=== PATIENT | female | born 1965 | race African-American/Black ===

== ENCOUNTER 2017-07-18 08:30 | Emergency (ER) | payer MEDICAID ==
[~2017-07-18] VITALS: Ht 170.2 cm; Wt 75.0 kg
[~2017-07-18 08:30] MED LIST: DOCU250C14 PO; HYDR-523 PO; LORA10TA7 PO; METF10002 PO; MOME13HF2 IH; OMEP20TA15 PO; TRAM50TA3 PO
[2017-07-18] MEDS ORDERED: SODIUM CHLORIDE 0.9% 1,000 ML IV ONE (09:38)
[2017-07-18 10:05] LABS: BASOPHILS % 1.1 % (0.0-2.0); EOSINOPHILS % 1.4 % (0.0-5.0); HEMOGLOBIN. 11.8 g/dL (12.0-16.0); LYMPHOCYTES % 29.4 % (20.0-50.0); MEAN CORPUSCULAR HEMOGLOBIN 27.6 pg (28.0-32.0); MEAN CORPUSCULAR VOLUME 84.3 fL (81.0-99.0); MONOCYTES % 7.6 % (2.0-8.0); NEUTROPHILS % 60.5 % (40.0-76.0); PLATELET 260 x1000/uL (130-400); RED BLOOD CELL COUNT 4.27 mill/uL (4.2-5.4); RED CELL DISTRIBUTION WIDTH 14.8 % (11.6-14.6)
[2017-07-18 10:13] LABS: KETONES URINE NEGATIVE (NEGATIVE); LEUKOCYTE ESTERASE URINE NEGATIVE (NEGATIVE); NITRITE URINE NEGATIVE (NEGATIVE); OCCULT BLOOD URINE TRACE (NEGATIVE); PH URINE 5.5 (4.5-8.0); PROTEIN URINE 1+ (NEGATIVE); SPECIFIC GRAVITY URINE 1.007 (1.005-1.030); UROBILINOGEN URINE 0.2 E.U./dL (0.2-1.0)
[2017-07-18 10:16] LABS: D-DIMER 0.57 mg/L FEU (<0.50); INR 1.1; PROTHROMBIN TIME 11.4 sec (9.4-11.6)
[2017-07-18 10:16] LABS: CLARITY URINE CLEAR (CLEAR); COLOR URINE PALE YELLOW (YELLOW)
[2017-07-18 10:21] LABS: CARBON DIOXIDE 24 mEq/L (21-32); CHLORIDE 108 mEq/L (98-107); TROPONIN I < 0.02 ng/mL (0.00-0.04)
[2017-07-18 11:07] LABS: *AMPHETAMINES SCREEN URINE NEGATIVE (NEGATIVE); *BARBITURATES SCREEN URINE NEGATIVE (NEGATIVE); *BENZODIAZEPINES SCREEN URINE NEGATIVE (NEGATIVE); *COCAINE SCREEN URINE PRESUMTIVE POSITIVE (NEGATIVE); CANNABINOID URINE SCREEN NEGATIVE (NEGATIVE); METHADONE URINE SCREEN NEGATIVE (NEGATIVE); OPIATES URINE SCREEN NEGATIVE (NEGATIVE); PHENCYCLIDINE URINE SCREEN PRESUMTIVE POSITIVE (NEGATIVE)
[2017-07-18] MEDS ORDERED: ACETAMINOPHEN 325MG TABLET PO ONE (12:15)
[2017-07-18 16:28] VITALS: BP 158/90
[2017-07-18] MEDS ORDERED: IOHEXOL-350 100 ML BOTTLE ONE (17:13)
== END 2017-07-18 17:52 | disposition home or self-care (01) ==
LOC: ER 08:53
DX: R51 Headache (principal); R04.0 Epistaxis; R07.9 Chest pain, unspecified; R20.0 Anesthesia of skin; M79.7 Fibromyalgia; J45.909 Unspecified asthma, uncomplicated; E11.9 Type 2 diabetes mellitus without complications; M19.90 Unspecified osteoarthritis, unspecified site; F17.200 Nicotine dependence, unspecified, uncomplicated; F12.10 Cannabis abuse, uncomplicated; Z88.5 Allergy status to narcotic agent
CPT/HCPCS: 36415; 70486; 71045; 71275; 80053; 80305; 81001; 82962; 83880; 84484; 85025; 85379; 85610; 87040; 87086; 93005; 96360; 99285; J7030; Q9967; Z7610

== ENCOUNTER 2018-03-17 18:50 | Emergency (ER) | payer MEDICAID ==
[~2018-03-17] VITALS: Ht 167.6 cm; Wt 78.0 kg
[~2018-03-17 18:50] MED LIST changes: -METF10002 PO; +METF10004 PO
[2018-03-17 20:56] LABS: CHLORIDE 109 mEq/L (98-107)
[2018-03-17 21:00] LABS: BASOPHILS % 0.2 % (0.0-2.0); EOSINOPHILS % 0.8 % (0.0-5.0); HEMATOCRIT. 32.5 % (36.0-48.0); HEMOGLOBIN. 10.2 g/dL (12.0-16.0); MEAN CORPUSCULAR HEMOGLOBIN 27.7 pg (28.0-32.0); MEAN CORPUSCULAR VOLUME 88.6 fL (81.0-99.0); MEAN PLATELET VOLUME 11.2 fl (7.4-10.4); MONOCYTES % 4.6 % (2.0-8.0); NEUTROPHILS % 86.4 % (40.0-76.0); PLATELET 225 x1000/uL (130-400); RED BLOOD CELL COUNT 3.67 mill/uL (4.2-5.4)
[2018-03-17] MEDS ORDERED: ALBUTEROL (0.083%) 2.5MG/3ML NEB HHN STA (21:13)
[2018-03-17] MEDS ORDERED: IPRATROPIUM BROMIDE (0.02%) 0.5MG/2.5ML NEB HHN STA (21:13)
[2018-03-17] MEDS ORDERED: KETOROLAC 15MG/ML VIAL IV ONE (21:45)
[2018-03-17] MEDS ORDERED: SODIUM CHLORIDE 0.9% 1,000 ML IV ONE (21:45)
[2018-03-17 22:17] VITALS: BP 172/90
== END 2018-03-17 22:41 | disposition home or self-care (01) ==
LOC: ER 18:50
DX: J06.9 Acute upper respiratory infection, unspecified (principal); J44.1 Chronic obstructive pulmonary disease with (acute) exacerbation; N17.9 Acute kidney failure, unspecified; M54.5 Low back pain; E86.0 Dehydration; R07.89 Other chest pain; E11.65 Type 2 diabetes mellitus with hyperglycemia; E88.09 Other disorders of plasma-protein metabolism, not elsewhere classified; M19.90 Unspecified osteoarthritis, unspecified site; D64.9 Anemia, unspecified; J45.909 Unspecified asthma, uncomplicated; F12.10 Cannabis abuse, uncomplicated; F17.200 Nicotine dependence, unspecified, uncomplicated; M79.7 Fibromyalgia; Z88.5 Allergy status to narcotic agent; Z79.84 Long term (current) use of oral hypoglycemic drugs
CPT/HCPCS: 36415; 71045; 80053; 83880; 84484; 85025; 94640; 96361; 96374; 99285; J1885; J7030; J7611

== ENCOUNTER 2018-11-01 20:40 | Inpatient (IN) | payer MEDICAID ==
[~2018-11-01] VITALS: Ht 167.6 cm; Wt 83.0 kg
[~2018-11-01 20:40] MED LIST changes: +ALBU4TAB6 PO; +ARAV10 PO; +GABA-529 PO; -LORA10TA7 PO; +LORA5SOL PO; +LORA5SOL62 PO; -METF10004 PO
[2018-11-01] MEDS ORDERED: NITROGLYCERIN 0.4MG TABLET SL SL PRN (21:45)
[2018-11-01] MEDS ORDERED: ASPIRIN 81MG TABLET PO ONE (21:45)
[2018-11-01 22:17] LABS: BASOPHILS % 1.2 % (0.0-2.0); EOSINOPHILS % 0.9 % (0.0-5.0); HEMATOCRIT. 36.4 % (36.0-48.0); HEMOGLOBIN. 11.5 g/dL (12.0-16.0); LYMPHOCYTES % 28.1 % (20.0-50.0); MEAN CORPUSCULAR HEMOGLOBIN 26.5 pg (28.0-32.0); MEAN CORPUSCULAR VOLUME 84.2 fL (81.0-99.0); MEAN PLATELET VOLUME 11.8 fl (7.4-10.4); MONOCYTES % 9.8 % (2.0-8.0); PLATELET 205 x1000/uL (130-400); RED BLOOD CELL COUNT 4.33 mill/uL (4.2-5.4); RED CELL DISTRIBUTION WIDTH 16.2 % (11.6-14.6)
[2018-11-01 22:21] LABS: CHLORIDE 104 mEq/L (98-107)
[2018-11-01 22:26] LABS: D-DIMER 0.64 mg/L FEU (<0.50); INR 1.1; PARTIAL THROMBOPLASTIN TIME 30.6 sec (23.4-31.0); PROTHROMBIN TIME 11.1 sec (9.6-11.0)
[2018-11-01] MEDS ORDERED: INSULIN REGULAR (HUMULIN R) UD 100 UNITS/ML SYR SUBCUT ONE (23:45)
[2018-11-02] MEDS ORDERED: DOCUSATE SODIUM 100MG CAPSULE PO PRN (00:15)
[2018-11-02] MEDS ORDERED: ONDANSETRON HCL 4MG/2ML INJ IV PRN (00:15)
[2018-11-02] MEDS ORDERED: ACETAMINOPHEN 325MG TABLET PO PRN (00:15)
[2018-11-02] MEDS ORDERED: IPRATROPIUM/ALBUTEROL 0.5-3(2.5)MG/3ML NEB INH PRN (00:15)
[2018-11-02] MEDS ORDERED: MAGNESIUM/ALUMINUM HYDROXIDE/SIMETHICONE 30ML UDC PO PRN (00:15)
[2018-11-02] MEDS ORDERED: IOHEXOL-350 100 ML BOTTLE ONE (02:10)
[2018-11-02] MEDS ORDERED: INSULIN REGULAR (HUMULIN R) 300UNITS/3ML SUBCUT NR (02:30)
[2018-11-02 02:59] LABS: *AMPHETAMINES SCREEN URINE NEGATIVE (NEGATIVE); *BARBITURATES SCREEN URINE NEGATIVE (NEGATIVE)
[2018-11-02 03:00] LABS: *BENZODIAZEPINES SCREEN URINE NEGATIVE (NEGATIVE); *COCAINE SCREEN URINE PRESUMTIVE POSITIVE (NEGATIVE); CANNABINOID URINE SCREEN NEGATIVE (NEGATIVE); METHADONE URINE SCREEN NEGATIVE (NEGATIVE); OPIATES URINE SCREEN NEGATIVE (NEGATIVE); PHENCYCLIDINE URINE SCREEN PRESUMTIVE POSITIVE (NEGATIVE)
[2018-11-02] MEDS: HYDROCODONE/ACETAMINOPHEN 5/325MG TABLET PO PRN ×3 (03:34→21:34)
[2018-11-02] MEDS: CLONIDINE 0.1MG TABLET PO PRN ×2 (05:09→23:52)
[2018-11-02 06:29] LABS: CREATINE KINASE 103 IU/L (26-192)
[2018-11-02 06:30] LABS: CREATINE KINASE MB FRACTION 1.4 ng/mL (0.5-3.6)
[2018-11-02] MEDS ORDERED: DEXTROSE 50% WATER 50ML SYRINGE IV PRN (09:30)
[2018-11-02 10:00] VITALS: BP 172/100
[2018-11-02] MEDS: ASPIRIN 81MG EC TABLET PO SCH (10:26)
[2018-11-02] MEDS: ENOXAPARIN 40MG/0.4ML SYR SUBCUT SCH (10:28)
[2018-11-02] MEDS: INSULIN LISPRO 100 UNITS/ML SUBCUT SCH ×3 (10:30→21:33)
[2018-11-02] MEDS: BLOOD SUGAR DIAGNOSTIC STRIP TEST SCH ×3 (10:30→21:32)
[2018-11-02] MEDS: AMLODIPINE 5MG TABLET PO SCH ×2 (10:39→21:33)
[2018-11-02] MEDS: GUAIFENESIN 200MG/10ML SUGAR FREE UDC PO PRN ×2 (10:40→21:37)
[2018-11-02 16:00] VITALS: BP 147/82
[2018-11-02 19:00] LABS: CREATINE KINASE 92 IU/L (26-192)
[2018-11-02 19:01] LABS: CREATINE KINASE MB FRACTION 1.2 ng/mL (0.5-3.6)
[2018-11-02 20:00] VITALS: BP 163/96
[2018-11-02 20:12] LABS: HEPATITIS B SURFACE ANTIGEN NEGATIVE
[2018-11-02 20:42] LABS: HEPATITIS A AB IGM NEGATIVE (NEGATIVE)
[2018-11-03] VITALS: BP 179/107
[2018-11-03 04:00] VITALS: BP 170/100
[2018-11-03] MEDS: BLOOD SUGAR DIAGNOSTIC STRIP TEST SCH ×3 (06:50→21:37)
[2018-11-03 07:01] LABS: BASOPHILS % 0.9 % (0.0-2.0); EOSINOPHILS % 3.2 % (0.0-5.0); HEMATOCRIT. 34.8 % (36.0-48.0); HEMOGLOBIN. 11.3 g/dL (12.0-16.0); LYMPHOCYTES % 39.9 % (20.0-50.0); MEAN CORPUSCULAR HEMOGLOBIN 26.9 pg (28.0-32.0); MEAN CORPUSCULAR VOLUME 82.6 fL (81.0-99.0); MEAN PLATELET VOLUME 10.5 fl (7.4-10.4); MONOCYTES % 12.6 % (2.0-8.0); NEUTROPHILS % 43.4 % (40.0-76.0); PLATELET 148 x1000/uL (130-400); RED BLOOD CELL COUNT 4.21 mill/uL (4.2-5.4)
[2018-11-03] MEDS: INSULIN LISPRO 100 UNITS/ML SUBCUT SCH ×4 (07:02→21:46)
[2018-11-03 07:52] LABS: CHLORIDE 107 mEq/L (98-107)
[2018-11-03 08:00] VITALS: BP 145/86
[2018-11-03 08:14] LABS: HDL CHOLESTEROL 52 mg/dL (40-59); LDL CHOLESTEROL 66 mg/dL (5-100)
[2018-11-03] MEDS ORDERED: THROAT LOZENGES-BENZOCAINE/MENTH/CETYLPYRD CL LOZENGES MM SCH (09:45)
[2018-11-03] MEDS ORDERED: GUAIFENESIN 200MG/10ML SUGAR FREE UDC PO SCH (09:45)
[2018-11-03] MEDS ORDERED: THROAT LOZENGES-BENZOCAINE/MENTH/CETYLPYRD CL LOZENGES MM PRN (09:45)
[2018-11-03] MEDS ORDERED: INSULIN GLARGINE UD 100 UNITS/ML SYR SUBCUT SCH ×2 (10:00→22:00)
[2018-11-03] MEDS: CLONIDINE 0.1MG TABLET PO SCH ×3 (10:04→21:43)
[2018-11-03] MEDS: HYDRALAZINE HCL 25MG TABLET PO SCH ×3 (10:04→21:44)
[2018-11-03] MEDS: ASPIRIN 81MG EC TABLET PO SCH (10:04)
[2018-11-03] MEDS: HYDROCODONE/ACETAMINOPHEN 5/325MG TABLET PO PRN ×2 (10:05→21:43)
[2018-11-03] MEDS: NIFEDIPINE XL 60MG TAB PO SCH ×2 (10:05→21:42)
[2018-11-03] MEDS: ENOXAPARIN 40MG/0.4ML SYR SUBCUT SCH (10:06)
[2018-11-03 12:00] VITALS: BP_SYST 128; BP_SYST 143; BP_DIAS 65; BP_DIAS 76
[2018-11-03] MEDS ORDERED: DEXTROSE 50% WATER 50ML SYRINGE IV PRN (12:45)
[2018-11-03] MEDS ORDERED: GABA-531 MT (14:18)
[2018-11-03] MEDS ORDERED: HYDR200T35 MT (14:21)
[2018-11-03] MEDS ORDERED: FURO20TA4 MT (14:24)
[2018-11-03] MEDS ORDERED: MONT10TA24 MT (14:24)
[2018-11-03] MEDS ORDERED: OMEP20CA10 MT (14:25)
[2018-11-03] MEDS ORDERED: CETI10TA10 MT (14:26)
[2018-11-03] MEDS ORDERED: LEFL20TA17 MT (14:27)
[2018-11-03] MEDS ORDERED: DILT180C3 MT (14:28)
[2018-11-03] MEDS ORDERED: FLUT15.88 BOTHNSTRLS (14:28)
[2018-11-03] MEDS ORDERED: DULO30CA51 MT (14:29)
[2018-11-03] MEDS ORDERED: CALC-3 MT (14:30)
[2018-11-03] MEDS ORDERED: FOLI-43 MT (14:31)
[2018-11-03] MEDS ORDERED: INSULIN GLARGINE UD 100 UNITS/ML SYR SUBCUT NR (16:00)
[2018-11-03 17:12] LABS: BG BASE EXCESS -2.3 mmol/L (-2.0-2.0); BG CARBOXYHEMOGLOBIN 0.2 % (0.5-1.5); BG DEOXYHEMOGLOBIN 3.2 % (0.0-5.0); BG FRACTION INSPIRED OXYGEN 21; BG HCO3 ACT 22.4 mmol/L (22.0-26.0); BG METHEMOGLOBIN 0.3 % (0.0-1.5); BG OXYGEN SATURATION 96.8 % (92.0-98.5); BG OXYHEMOGLOBIN 96.3 % (94.0-97.0); BG PCO2 37.9 mmHg (35.0-45.0); BG PH 7.389 (7.350-7.450); BG PO2 98.2 mmHg (75.0-100.0); BG SAMPLE SITE LEFT RADIAL; BG TOTAL HEMOGLOBIN 11.3 g/dL (12.0-18.0); BG VENT MODE ROOM AIR
[2018-11-03] MEDS ORDERED: INSULIN LISPRO 100 UNITS/ML SUBCUT SCH (17:15)
[2018-11-03 20:00] VITALS: BP 133/75
[2018-11-03] MEDS: GUAIFENESIN 200MG/10ML SUGAR FREE UDC PO PRN (21:41)
[2018-11-04] VITALS (7 sets, daily range): BP systolic 122–140; BP diastolic 70–76
[2018-11-04 05:17] LABS: HIV SCREEN 4G Non Reactive (Non Reactive)
[2018-11-04] MEDS: HYDRALAZINE HCL 25MG TABLET PO SCH ×2 (06:39→15:18)
[2018-11-04] MEDS: CLONIDINE 0.1MG TABLET PO SCH ×2 (06:39→15:18)
[2018-11-04] MEDS: BLOOD SUGAR DIAGNOSTIC STRIP TEST SCH ×4 (06:39→21:00)
[2018-11-04 06:42] LABS: BASOPHILS % 0.9 % (0.0-2.0); EOSINOPHILS % 2.7 % (0.0-5.0); HEMATOCRIT. 34.8 % (36.0-48.0); HEMOGLOBIN. 11.1 g/dL (12.0-16.0); LYMPHOCYTES % 35.4 % (20.0-50.0); MEAN CORPUSCULAR HEMOGLOBIN 26.7 pg (28.0-32.0); MEAN CORPUSCULAR VOLUME 83.2 fL (81.0-99.0); MONOCYTES % 10.4 % (2.0-8.0); NEUTROPHILS % 50.6 % (40.0-76.0); PLATELET 157 x1000/uL (130-400); RED BLOOD CELL COUNT 4.18 mill/uL (4.2-5.4)
[2018-11-04] MEDS: INSULIN LISPRO 100 UNITS/ML SUBCUT SCH ×3 (06:42→17:59)
[2018-11-04 07:12] LABS: CHLORIDE 103 mEq/L (98-107)
[2018-11-04 07:30] LABS: PHOSPHORUS 3.2 mg/dL (2.5-4.9)
[2018-11-04] MEDS: ASPIRIN 81MG EC TABLET PO SCH (09:28)
[2018-11-04] MEDS: NIFEDIPINE XL 60MG TAB PO SCH (09:28)
[2018-11-04] MEDS: ENOXAPARIN 40MG/0.4ML SYR SUBCUT SCH (09:28)
[2018-11-04] MEDS: INSULIN GLARGINE UD 100 UNITS/ML SYR SUBCUT SCH (10:39)
[2018-11-04] MEDS: GUAIFENESIN 200MG/10ML SUGAR FREE UDC PO PRN (11:01)
[2018-11-04] MEDS: HYDROCODONE/ACETAMINOPHEN 5/325MG TABLET PO PRN (11:02)
[2018-11-05] VITALS: BP 127/87
[2018-11-05] MEDS: GUAIFENESIN 200MG/10ML SUGAR FREE UDC PO PRN (00:02)
[2018-11-05] MEDS: HYDROCODONE/ACETAMINOPHEN 5/325MG TABLET PO PRN (00:02)
[2018-11-05] MEDS: INSULIN GLARGINE UD 100 UNITS/ML SYR SUBCUT SCH ×2 (00:02→09:03)
[2018-11-05] MEDS: INSULIN LISPRO 100 UNITS/ML SUBCUT SCH ×3 (00:03→13:11)
[2018-11-05] MEDS: HYDRALAZINE HCL 25MG TABLET PO SCH ×3 (00:04→13:11)
[2018-11-05] MEDS: NIFEDIPINE XL 60MG TAB PO SCH ×2 (00:07→08:27)
[2018-11-05] MEDS: CLONIDINE 0.1MG TABLET PO SCH ×3 (00:07→13:11)
[2018-11-05 04:00] VITALS: BP 156/91
[2018-11-05] MEDS: BLOOD SUGAR DIAGNOSTIC STRIP TEST SCH ×2 (06:54→12:02)
[2018-11-05 07:23] LABS: BASOPHILS % 1.1 % (0.0-2.0); EOSINOPHILS % 1.9 % (0.0-5.0); HEMATOCRIT. 38.6 % (36.0-48.0); HEMOGLOBIN. 12.4 g/dL (12.0-16.0); LYMPHOCYTES % 41.3 % (20.0-50.0); MEAN CORPUSCULAR HEMOGLOBIN 26.3 pg (28.0-32.0); MEAN PLATELET VOLUME 11.2 fl (7.4-10.4); MONOCYTES % 8.4 % (2.0-8.0); NEUTROPHILS % 47.3 % (40.0-76.0); PLATELET 213 x1000/uL (130-400); RED BLOOD CELL COUNT 4.71 mill/uL (4.2-5.4); RED CELL DISTRIBUTION WIDTH 15.6 % (11.6-14.6)
[2018-11-05 07:56] LABS: CHLORIDE 105 mEq/L (98-107)
[2018-11-05 08:00] VITALS: BP 158/68
[2018-11-05] MEDS: ASPIRIN 81MG EC TABLET PO SCH (08:27)
[2018-11-05] MEDS: ENOXAPARIN 40MG/0.4ML SYR SUBCUT SCH (08:27)
[2018-11-05 12:00] VITALS: BP 123/78
[2018-11-05] MEDS ORDERED: GEMF600T MT (13:09)
[2018-11-05] MEDS ORDERED: ASPI-1158 PO (13:09)
[2018-11-05] MEDS ORDERED: CLON0.1T14 PO (13:09)
[2018-11-05] MEDS ORDERED: NIFE60TA64 PO (13:09)
[2018-11-05] MEDS ORDERED: HYDR-4134 PO (13:09)
[2018-11-05] MEDS ORDERED: LANTUSUD SUBCUT (13:09)
[2018-11-05] MEDS ORDERED: DOCU-138 MT (13:17)
[2018-11-05] MEDS ORDERED: CODE10LI MT (13:17)
[2018-11-05 13:20] VITALS: BP 123/78
== END 2018-11-05 14:15 | disposition home or self-care (01) | DRG 469 ==
LOC: ER 20:40 → 5WST 11-02 02:34 → ENRESERV 11-02 07:22
PROVIDERS: ADMIT Internal Medicine; ATTEND Internal Medicine
DX: N17.9 Acute kidney failure, unspecified (principal); E87.2 Acidosis; I11.9 Hypertensive heart disease without heart failure; E11.65 Type 2 diabetes mellitus with hyperglycemia; E44.1 Mild protein-calorie malnutrition; R13.10 Dysphagia, unspecified; J44.9 Chronic obstructive pulmonary disease, unspecified; J45.909 Unspecified asthma, uncomplicated; M19.90 Unspecified osteoarthritis, unspecified site; J02.9 Acute pharyngitis, unspecified; R07.89 Other chest pain; D64.9 Anemia, unspecified; E78.1 Pure hyperglyceridemia; M79.7 Fibromyalgia; F16.129 Hallucinogen abuse with intoxication, unspecified; F17.210 Nicotine dependence, cigarettes, uncomplicated; M06.9 Rheumatoid arthritis, unspecified; Z79.4 Long term (current) use of insulin; Z83.3 Family history of diabetes mellitus; Z82.49 Family history of ischemic heart disease and other diseases of the circulatory system; Z68.29 Body mass index [BMI] 29.0-29.9, adult; Z88.5 Allergy status to narcotic agent; Z79.51 Long term (current) use of inhaled steroids; Z79.899 Other long term (current) drug therapy; Z79.1 Long term (current) use of non-steroidal anti-inflammatories (NSAID); Z71.51 Drug abuse counseling and surveillance of drug abuser; Z71.6 Tobacco abuse counseling; R74.0 Nonspecific elevation of levels of transaminase and lactic acid dehydrogenase [LDH]
CPT/HCPCS: 36415; 36600; 71045; 71275; 80048; 80061; 80305; 82375; 82550; 82553; 82805; 82962; 83036; 83735; 83880; 84100; 84443; 84484; 85379; 86705; 86709; 86803; 87070; 87340; 87389; 87430; 93005; 93306; 93970; 96372; 99285; J1650; J1815; Q9967

== ENCOUNTER 2019-01-11 20:07 | Inpatient (IN) | payer MEDICAID ==
[~2019-01-11] VITALS: Ht 167.6 cm; Wt 90.3 kg
[~2019-01-11 20:07] MED LIST changes: +ASPI-1158 PO; +CALC-3 MT; +CETI10TA10 MT; +CLON0.1T14 PO; +CODE10LI MT; +DOCU-138 MT; +DULO30CA51 MT; +FLUT15.88 BOTHNSTRLS; +FOLI-43 MT; +GEMF600T MT; +HYDR-4134 PO; +HYDR200T35 MT; +LANTUSUD SUBCUT; -LORA5SOL PO; -LORA5SOL62 PO; +MONT10TA24 MT; +NIFE60TA64 PO; +OMEP20CA5 MT; -OMEP20TA15 PO
[2019-01-11] MEDS ORDERED: ONDANSETRON HCL 4MG/2ML INJ IV STA (21:20)
[2019-01-11] MEDS ORDERED: MORPHINE SULFATE 4 MG/ML CPJ (NOT FOR IM USE) IV STA (21:20)
[2019-01-11] MEDS ORDERED: METHYLPREDNISOLONE SOD SUCC 125 MG/2 ML VIAL IV STA (21:20)
[2019-01-11] MEDS ORDERED: KETOROLAC 30MG/ML VIAL IV STA (21:20)
[2019-01-11] MEDS ORDERED: DIPHENHYDRAMINE 50MG/ML VIAL IV ONE (21:30)
[2019-01-11] MEDS ORDERED: IPRATROPIUM/ALBUTEROL 0.5-3(2.5)MG/3ML NEB HHN ONE (21:30)
[2019-01-11] MEDS ORDERED: VANCOMYCIN 1 G PREMIX 200 ML IV ONE (21:30)
[2019-01-11] MEDS ORDERED: PIPERACILLIN/TAZ 3.375G PREMIX 50 ML IV ONE (21:30)
[2019-01-11] MEDS ORDERED: SODIUM CHLORIDE 0.9% 1000ML BAG (SEPSIS BOLUS) IV ONE (21:30)
[2019-01-11 21:45] LABS: BASOPHILS % 0.4 % (0.0-2.0); CLARITY URINE CLEAR (CLEAR); COLOR URINE YELLOW (YELLOW); EOSINOPHILS % 0.4 % (0.0-5.0); HEMATOCRIT. 33.3 % (36.0-48.0); HEMOGLOBIN. 10.3 g/dL (12.0-16.0); KETONES URINE NEGATIVE (NEGATIVE); LEUKOCYTE ESTERASE URINE NEGATIVE (NEGATIVE); LYMPHOCYTES % 11.6 % (20.0-50.0); MEAN CORPUSCULAR HEMOGLOBIN 27.4 pg (28.0-32.0); MEAN CORPUSCULAR VOLUME 88.5 fL (81.0-99.0); MEAN PLATELET VOLUME 11.4 fl (7.4-10.4); MONOCYTES % 9.4 % (2.0-8.0); NEUTROPHILS % 78.2 % (40.0-76.0); NITRITE URINE NEGATIVE (NEGATIVE); OCCULT BLOOD URINE NEGATIVE (NEGATIVE); PH URINE 5.5 (4.5-8.0); PLATELET 206 x1000/uL (130-400); PROTEIN URINE 1+ (NEGATIVE); RED BLOOD CELL COUNT 3.76 mill/uL (4.2-5.4); RED CELL DISTRIBUTION WIDTH 15.1 % (11.6-14.6); SPECIFIC GRAVITY URINE 1.028 (1.005-1.030); UROBILINOGEN URINE 0.2 E.U./dL (0.2-1.0)
[2019-01-11 21:46] LABS: CHLORIDE 95 mEq/L (98-107)
[2019-01-11 21:50] LABS: ETHANOL BLOOD < 10 mg/dL
[2019-01-11 21:55] LABS: CREATINE KINASE 126 IU/L (26-192)
[2019-01-11 21:57] LABS: CREATINE KINASE MB FRACTION < 1.0 ng/mL (0.5-3.6)
[2019-01-11 22:29] LABS: *AMPHETAMINES SCREEN URINE NEGATIVE (NEGATIVE); *BARBITURATES SCREEN URINE NEGATIVE (NEGATIVE); *BENZODIAZEPINES SCREEN URINE NEGATIVE (NEGATIVE); *COCAINE SCREEN URINE PRESUMTIVE POSITIVE (NEGATIVE)
[2019-01-11 22:30] LABS: CANNABINOID URINE SCREEN NEGATIVE (NEGATIVE); METHADONE URINE SCREEN NEGATIVE (NEGATIVE); OPIATES URINE SCREEN PRESUMTIVE POSITIVE (NEGATIVE); PHENCYCLIDINE URINE SCREEN PRESUMTIVE POSITIVE (NEGATIVE)
[2019-01-11] MEDS ORDERED: INSULIN REGULAR (HUMULIN R) 300UNITS/3ML IV ONE (22:30)
[2019-01-11] MEDS ORDERED: INSULIN REGULAR (HUMULIN R) 300UNITS/3ML SUBCUT ONE (22:30)
[2019-01-12] VITALS (9 sets, daily range): BP systolic 96–171; BP diastolic 46–91
[2019-01-12] MEDS ORDERED: DEXTROSE 50% WATER 50ML SYRINGE IV PRN (07:45)
[2019-01-12] MEDS ORDERED: ONDANSETRON HCL 4MG/2ML INJ IV PRN (07:45)
[2019-01-12] MEDS: BLOOD SUGAR DIAGNOSTIC STRIP TEST SCH ×4 (08:52→21:20)
[2019-01-12] MEDS: ENOXAPARIN 40MG/0.4ML SYR SUBCUT SCH (09:10)
[2019-01-12] MEDS: AZITHROMYCIN 500 MG TABLET PO SCH (09:11)
[2019-01-12] MEDS: LINAGLIPTIN 5MG TABLET PO SCH (09:11)
[2019-01-12] MEDS: INSULIN LISPRO 100 UNITS/ML SUBCUT SCH ×7 (09:12→21:30)
[2019-01-12] MEDS: ACETAMINOPHEN 325MG TABLET PO PRN (09:20)
[2019-01-12] MEDS ORDERED: INSULIN GLARGINE UD 100 UNITS/ML SYR SUBCUT SCH ×2 (10:00→22:00)
[2019-01-12] MEDS: SODIUM CHLORIDE 0.9% 1,000 ML IV SCH (11:00)
[2019-01-12] MEDS: CEFTRIAXONE 1 G PREMIX 50 ML IV SCH (12:25)
[2019-01-12] MEDS: INSULIN GLARGINE UD 100 UNITS/ML SYR SUBCUT SCH ×2 (13:38→21:29)
[2019-01-12] MEDS: IPRATROPIUM/ALBUTEROL 0.5-3(2.5)MG/3ML NEB HHN PRN ×2 (13:40→20:34)
[2019-01-12] MEDS: BUDESONIDE 0.5MG/2ML NEB HHN SCH ×2 (13:41→20:34)
[2019-01-12] MEDS: HYDROCODONE/ACETAMINOPHEN 5/325MG TABLET PO PRN ×3 (14:02→23:38)
[2019-01-12] MEDS ORDERED: GLIPIZIDE 5MG TABLET PO SCH (18:30)
[2019-01-12] MEDS: CLONIDINE 0.1MG TABLET PO SCH (21:20)
[2019-01-12] MEDS: NIFEDIPINE XL 60MG TAB PO SCH (21:20)
[2019-01-12] MEDS: HYDRALAZINE HCL 25MG TABLET PO SCH (21:20)
[2019-01-12] MEDS ORDERED: CLONIDINE 0.1MG TABLET PO PRN (23:30)
[2019-01-13] MEDS: SODIUM CHLORIDE 0.9% 1,000 ML IV SCH (00:20)
[2019-01-13] MEDS: HYDROCODONE/ACETAMINOPHEN 5/325MG TABLET PO PRN ×3 (04:27→14:17)
[2019-01-13] MEDS: HYDRALAZINE HCL 25MG TABLET PO SCH ×3 (05:15→21:18)
[2019-01-13] MEDS: CLONIDINE 0.1MG TABLET PO SCH ×3 (05:16→21:18)
[2019-01-13 07:07] LABS: BASOPHILS % 0.7 % (0.0-2.0); EOSINOPHILS % 0.3 % (0.0-5.0); HEMOGLOBIN. 9.6 g/dL (12.0-16.0); MEAN CORPUSCULAR HEMOGLOBIN 27.6 pg (28.0-32.0); MEAN CORPUSCULAR VOLUME 86.4 fL (81.0-99.0); MEAN PLATELET VOLUME 10.7 fl (7.4-10.4); MONOCYTES % 8.5 % (2.0-8.0); NEUTROPHILS % 72.5 % (40.0-76.0); PLATELET 169 x1000/uL (130-400); RED BLOOD CELL COUNT 3.47 mill/uL (4.2-5.4)
[2019-01-13 07:28] LABS: CHLORIDE 103 mEq/L (98-107)
[2019-01-13] MEDS: BLOOD SUGAR DIAGNOSTIC STRIP TEST SCH ×4 (07:30→20:57)
[2019-01-13] MEDS: BUDESONIDE 0.5MG/2ML NEB HHN SCH ×2 (07:50→21:19)
[2019-01-13] MEDS: IPRATROPIUM/ALBUTEROL 0.5-3(2.5)MG/3ML NEB HHN PRN (07:50)
[2019-01-13 08:05] VITALS: BP 163/99
[2019-01-13] MEDS: AZITHROMYCIN 500 MG TABLET PO SCH (08:48)
[2019-01-13] MEDS: METFORMIN HCL 500MG TABLET PO SCH ×2 (08:49→18:00)
[2019-01-13] MEDS: LINAGLIPTIN 5MG TABLET PO SCH (08:50)
[2019-01-13] MEDS: NIFEDIPINE XL 60MG TAB PO SCH ×2 (08:51→21:20)
[2019-01-13] MEDS: GLIPIZIDE 5MG TABLET PO SCH ×2 (08:51→17:30)
[2019-01-13] MEDS: ENOXAPARIN 40MG/0.4ML SYR SUBCUT SCH (08:52)
[2019-01-13] MEDS: INSULIN LISPRO 100 UNITS/ML SUBCUT SCH ×7 (08:54→20:57)
[2019-01-13] MEDS: CEFTRIAXONE 1 G PREMIX 50 ML IV SCH (09:00)
[2019-01-13 10:00] VITALS: BP 147/78
[2019-01-13] MEDS ORDERED: KETOROLAC 30MG/ML VIAL IV PRN (10:30)
[2019-01-13] MEDS: INSULIN GLARGINE UD 100 UNITS/ML SYR SUBCUT SCH ×2 (11:46→22:00)
[2019-01-13 12:00] VITALS: BP 155/85
[2019-01-13 14:00] VITALS: BP 150/96
[2019-01-13] MEDS: KETOROLAC 15MG/ML VIAL IV PRN (15:56)
[2019-01-13 16:00] VITALS: BP 140/66
[2019-01-13 18:00] VITALS: BP 129/67
[2019-01-14] VITALS (12 sets, daily range): BP systolic 123–171; BP diastolic 53–104
[2019-01-14] MEDS: KETOROLAC 15MG/ML VIAL IV PRN ×3 (02:32→18:40)
[2019-01-14] MEDS: HYDROCODONE/ACETAMINOPHEN 5/325MG TABLET PO PRN ×2 (03:53→22:34)
[2019-01-14] MEDS: HYDRALAZINE HCL 25MG TABLET PO SCH (05:49)
[2019-01-14] MEDS: CLONIDINE 0.1MG TABLET PO SCH ×3 (05:50→20:59)
[2019-01-14 07:00] LABS: BASOPHILS % 0.4 % (0.0-2.0); EOSINOPHILS % 1.5 % (0.0-5.0); HEMATOCRIT. 33.9 % (36.0-48.0); HEMOGLOBIN. 10.8 g/dL (12.0-16.0); LYMPHOCYTES % 21.9 % (20.0-50.0); MEAN CORPUSCULAR HEMOGLOBIN 27.7 pg (28.0-32.0); MEAN CORPUSCULAR VOLUME 86.5 fL (81.0-99.0); MONOCYTES % 7.6 % (2.0-8.0); NEUTROPHILS % 68.6 % (40.0-76.0); PLATELET 207 x1000/uL (130-400); RED BLOOD CELL COUNT 3.92 mill/uL (4.2-5.4); RED CELL DISTRIBUTION WIDTH 15.1 % (11.6-14.6)
[2019-01-14 07:18] LABS: CHLORIDE 102 mEq/L (98-107)
[2019-01-14] MEDS ORDERED: GLIPIZIDE 5MG TABLET PO SCH (07:30)
[2019-01-14] MEDS: INSULIN LISPRO 100 UNITS/ML SUBCUT SCH ×5 (08:00→20:57)
[2019-01-14] MEDS: BLOOD SUGAR DIAGNOSTIC STRIP TEST SCH ×4 (08:14→21:03)
[2019-01-14] MEDS ORDERED: LIDOCAINE HCL 1% 20ML VIAL (Pyxis) INJ ONE (08:16)
[2019-01-14] MEDS ORDERED: SODIUM BICARBONATE 4% (2.4MEQ) 5ML VIAL IV ONE (08:16)
[2019-01-14] MEDS: NIFEDIPINE XL 60MG TAB PO SCH ×2 (08:17→21:02)
[2019-01-14] MEDS: AZITHROMYCIN 500 MG TABLET PO SCH (08:17)
[2019-01-14] MEDS: METFORMIN HCL 500MG TABLET PO SCH ×2 (08:18→18:00)
[2019-01-14] MEDS: LINAGLIPTIN 5MG TABLET PO SCH (08:18)
[2019-01-14] MEDS: GLIPIZIDE 5MG TABLET PO SCH ×2 (08:31→17:30)
[2019-01-14] MEDS: ENOXAPARIN 40MG/0.4ML SYR SUBCUT SCH (09:00)
[2019-01-14] MEDS: INSULIN GLARGINE UD 100 UNITS/ML SYR SUBCUT SCH ×2 (10:10→20:58)
[2019-01-14] MEDS: BUDESONIDE 0.5MG/2ML NEB HHN SCH (11:50)
[2019-01-14] MEDS: CEFTRIAXONE 1 G PREMIX 50 ML IV SCH (12:59)
[2019-01-14] MEDS: HYDRALAZINE HCL 100MG TABLET PO SCH ×2 (13:02→20:59)
[2019-01-14] MEDS: METOPROLOL TARTRATE 50MG TABLET PO SCH (20:59)
[2019-01-14] MEDS: ZOLPIDEM TARTRATE 5MG TABLET PO PRN (22:33)
[2019-01-15] VITALS: BP 141/78
[2019-01-15 04:00] VITALS: BP 144/73
[2019-01-15] MEDS: HYDROCODONE/ACETAMINOPHEN 5/325MG TABLET PO PRN (04:35)
[2019-01-15] MEDS: CLONIDINE 0.1MG TABLET PO SCH ×3 (05:26→22:10)
[2019-01-15] MEDS: HYDRALAZINE HCL 100MG TABLET PO SCH ×3 (05:26→22:09)
[2019-01-15] MEDS: INSULIN LISPRO 100 UNITS/ML SUBCUT SCH ×7 (07:30→22:12)
[2019-01-15] MEDS: GLIPIZIDE 5MG TABLET PO SCH ×2 (07:30→17:03)
[2019-01-15] MEDS: BLOOD SUGAR DIAGNOSTIC STRIP TEST SCH ×4 (07:30→21:00)
[2019-01-15 08:00] VITALS: BP 135/73
[2019-01-15 08:31] LABS: BASOPHILS % 0.6 % (0.0-2.0); EOSINOPHILS % 1.1 % (0.0-5.0); HEMATOCRIT. 32.2 % (36.0-48.0); HEMOGLOBIN. 10.4 g/dL (12.0-16.0); LYMPHOCYTES % 17.5 % (20.0-50.0); MEAN CORPUSCULAR HEMOGLOBIN 27.5 pg (28.0-32.0); MEAN CORPUSCULAR VOLUME 84.9 fL (81.0-99.0); MEAN PLATELET VOLUME 10.7 fl (7.4-10.4); MONOCYTES % 9.2 % (2.0-8.0); NEUTROPHILS % 71.6 % (40.0-76.0); PLATELET 213 x1000/uL (130-400); RED BLOOD CELL COUNT 3.79 mill/uL (4.2-5.4); RED CELL DISTRIBUTION WIDTH 14.9 % (11.6-14.6)
[2019-01-15 09:14] LABS: CHLORIDE 105 mEq/L (98-107)
[2019-01-15] MEDS: ENOXAPARIN 40MG/0.4ML SYR SUBCUT SCH (09:21)
[2019-01-15] MEDS: LINAGLIPTIN 5MG TABLET PO SCH (09:22)
[2019-01-15] MEDS: AZITHROMYCIN 500 MG TABLET PO SCH (09:22)
[2019-01-15] MEDS: METFORMIN HCL 500MG TABLET PO SCH ×2 (09:23→18:00)
[2019-01-15] MEDS: METOPROLOL TARTRATE 50MG TABLET PO SCH ×2 (09:24→22:10)
[2019-01-15] MEDS: NIFEDIPINE XL 60MG TAB PO SCH ×2 (09:26→22:09)
[2019-01-15] MEDS: INSULIN GLARGINE UD 100 UNITS/ML SYR SUBCUT SCH ×2 (09:32→22:11)
[2019-01-15] MEDS: CEFTRIAXONE 1 G PREMIX 50 ML IV SCH (10:36)
[2019-01-15] MEDS: KETOROLAC 15MG/ML VIAL IV PRN ×2 (10:44→22:13)
[2019-01-15 12:00] VITALS: BP 153/85
[2019-01-15 16:00] VITALS: BP 149/79
[2019-01-15 20:00] VITALS: BP 148/86
[2019-01-15] MEDS: IPRATROPIUM/ALBUTEROL 0.5-3(2.5)MG/3ML NEB HHN PRN (20:20)
[2019-01-15] MEDS: BUDESONIDE 0.5MG/2ML NEB HHN SCH (20:20)
[2019-01-15] MEDS ORDERED: LIDOCAINE HCL 1% 20ML VIAL (Pyxis) INJ INFIL NR (21:00)
[2019-01-15] MEDS ORDERED: LIDOCAINE HCL/PF 1% 10 MG/ML 5ML VIAL IJ NR (21:06)
[2019-01-15] MEDS: ZOLPIDEM TARTRATE 5MG TABLET PO PRN (22:13)
[2019-01-16] VITALS: BP 135/85
[2019-01-16] MEDS: HYDROCODONE/ACETAMINOPHEN 5/325MG TABLET PO PRN ×4 (03:47→23:17)
[2019-01-16 04:00] VITALS: BP 125/89
[2019-01-16] MEDS: HYDRALAZINE HCL 100MG TABLET PO SCH ×3 (06:08→23:17)
[2019-01-16] MEDS: CLONIDINE 0.1MG TABLET PO SCH ×3 (06:08→23:16)
[2019-01-16] MEDS: KETOROLAC 15MG/ML VIAL IV PRN (06:27)
[2019-01-16] MEDS: BLOOD SUGAR DIAGNOSTIC STRIP TEST SCH ×4 (07:42→21:35)
[2019-01-16 08:00] VITALS: BP 132/86
[2019-01-16] MEDS: GLIPIZIDE 5MG TABLET PO SCH (08:10)
[2019-01-16] MEDS: METFORMIN HCL 500MG TABLET PO SCH ×2 (08:10→18:00)
[2019-01-16] MEDS: INSULIN LISPRO 100 UNITS/ML SUBCUT SCH ×6 (08:29→21:00)
[2019-01-16 08:51] LABS: BASOPHILS % 0.7 % (0.0-2.0); EOSINOPHILS % 1.5 % (0.0-5.0); HEMOGLOBIN. 10.2 g/dL (12.0-16.0); LYMPHOCYTES % 22.1 % (20.0-50.0); MEAN CORPUSCULAR HEMOGLOBIN 27.6 pg (28.0-32.0); MEAN CORPUSCULAR VOLUME 86.5 fL (81.0-99.0); MONOCYTES % 9.9 % (2.0-8.0); NEUTROPHILS % 65.8 % (40.0-76.0); PLATELET 207 x1000/uL (130-400); RED CELL DISTRIBUTION WIDTH 14.4 % (11.6-14.6)
[2019-01-16 08:53] LABS: CHLORIDE 106 mEq/L (98-107)
[2019-01-16] MEDS: ENOXAPARIN 40MG/0.4ML SYR SUBCUT SCH (08:53)
[2019-01-16] MEDS: AZITHROMYCIN 500 MG TABLET PO SCH (08:53)
[2019-01-16] MEDS: LINAGLIPTIN 5MG TABLET PO SCH (08:54)
[2019-01-16] MEDS: NIFEDIPINE XL 60MG TAB PO SCH ×2 (08:55→21:27)
[2019-01-16] MEDS: METOPROLOL TARTRATE 50MG TABLET PO SCH ×2 (08:55→21:27)
[2019-01-16] MEDS: BUDESONIDE 0.5MG/2ML NEB HHN SCH (09:00)
[2019-01-16] MEDS: IPRATROPIUM/ALBUTEROL 0.5-3(2.5)MG/3ML NEB HHN PRN (09:05)
[2019-01-16] MEDS: INSULIN GLARGINE UD 100 UNITS/ML SYR SUBCUT SCH ×2 (10:14→21:33)
[2019-01-16] MEDS: CEFTRIAXONE 1 G PREMIX 50 ML IV SCH (11:29)
[2019-01-16 13:01] VITALS: BP 133/88
[2019-01-16 16:00] VITALS: BP 174/92
[2019-01-16 20:00] VITALS: BP 148/117
[2019-01-16] MEDS: ACETAMINOPHEN 325MG TABLET PO PRN (21:24)
[2019-01-17] VITALS (7 sets, daily range): BP systolic 118–164; BP diastolic 60–87
[2019-01-17] MEDS: ZOLPIDEM TARTRATE 5MG TABLET PO PRN (00:56)
[2019-01-17] MEDS: GUAIFENESIN-DM 200MG-20MG/10ML UDC PO PRN ×2 (01:01→10:17)
[2019-01-17] MEDS: HYDROCODONE/ACETAMINOPHEN 5/325MG TABLET PO PRN ×2 (04:26→10:17)
[2019-01-17] MEDS: ACETAMINOPHEN 325MG TABLET PO PRN (06:11)
[2019-01-17] MEDS: HYDRALAZINE HCL 100MG TABLET PO SCH (06:12)
[2019-01-17] MEDS: CLONIDINE 0.1MG TABLET PO SCH (06:12)
[2019-01-17] MEDS: BLOOD SUGAR DIAGNOSTIC STRIP TEST SCH ×2 (07:30→13:16)
[2019-01-17] MEDS: AZITHROMYCIN 500 MG TABLET PO SCH (10:14)
[2019-01-17] MEDS: LINAGLIPTIN 5MG TABLET PO SCH (10:14)
[2019-01-17] MEDS ORDERED: ONDANSETRON HCL 4MG TABLET PO PRN (10:15)
[2019-01-17] MEDS: NIFEDIPINE XL 60MG TAB PO SCH (10:15)
[2019-01-17] MEDS: METOPROLOL TARTRATE 50MG TABLET PO SCH (10:15)
[2019-01-17] MEDS: METFORMIN HCL 500MG TABLET PO SCH (10:15)
[2019-01-17] MEDS: CEFTRIAXONE 1 G PREMIX 50 ML IV SCH ×2 (10:18→10:32)
[2019-01-17] MEDS: ENOXAPARIN 40MG/0.4ML SYR SUBCUT SCH (10:18)
[2019-01-17] MEDS: INSULIN LISPRO 100 UNITS/ML SUBCUT SCH ×2 (10:19→13:00)
[2019-01-17] MEDS: INSULIN GLARGINE UD 100 UNITS/ML SYR SUBCUT SCH (10:20)
[2019-01-17] MEDS: BUDESONIDE 0.5MG/2ML NEB HHN SCH (12:43)
[2019-01-17] MEDS: IPRATROPIUM/ALBUTEROL 0.5-3(2.5)MG/3ML NEB HHN PRN (12:46)
== END 2019-01-17 18:58 | disposition home or self-care (01) | DRG 816 ==
LOC: ER 20:07 → 5EST 22:52 → EDBEDREQTM 23:01 → EDBEDREQ 23:01 → ENRESERV 01-12 07:05 → 5EST 01-12 09:22
PROVIDERS: ADMIT Internal Medicine; ATTEND Internal Medicine
PROC: 0X953ZZ Drainage of Left Axilla, Percutaneous Approach (ICD-10-PCS; principal; 2019-01-14)
PROC: 0X950ZZ Drainage of Left Axilla, Open Approach (ICD-10-PCS; 2019-01-16)
DX: T40.5X1A Poisoning by cocaine, accidental (unintentional), initial encounter (principal); J96.00 Acute respiratory failure, unspecified whether with hypoxia or hypercapnia; A41.9 Sepsis, unspecified organism; J18.1 Lobar pneumonia, unspecified organism; E87.8 Other disorders of electrolyte and fluid balance, not elsewhere classified; J68.0 Bronchitis and pneumonitis due to chemicals, gases, fumes and vapors; E11.65 Type 2 diabetes mellitus with hyperglycemia; E44.1 Mild protein-calorie malnutrition; D64.9 Anemia, unspecified; E87.1 Hypo-osmolality and hyponatremia; I10 Essential (primary) hypertension; M19.90 Unspecified osteoarthritis, unspecified site; F17.210 Nicotine dependence, cigarettes, uncomplicated; E66.9 Obesity, unspecified; L02.412 Cutaneous abscess of left axilla; F14.10 Cocaine abuse, uncomplicated; Z88.5 Allergy status to narcotic agent; Z83.3 Family history of diabetes mellitus; Z80.8 Family history of malignant neoplasm of other organs or systems; Z82.49 Family history of ischemic heart disease and other diseases of the circulatory system; Z71.6 Tobacco abuse counseling; Z71.3 Dietary counseling and surveillance; Y92.89 Other specified places as the place of occurrence of the external cause; Z79.4 Long term (current) use of insulin; Z68.32 Body mass index [BMI] 32.0-32.9, adult
CPT/HCPCS: 20611; 36415; 71045; 80048; 80305; 80320; 82010; 82550; 82553; 82962; 83605; 84145; 84484; 86850; 86900; 87077; 93005; 94640; 96365; 96367; 96372; 96375; 99285; J0696; J1200; J1650; J1815; J1885; J2270; J2405; J2543; J2930; J3370; J3490; J7030; J7620; J7626; G0480

== ENCOUNTER 2019-08-16 21:23 | Inpatient (IN) | payer MEDICAID ==
[~2019-08-16] VITALS: Ht 167.6 cm; Wt 73.0 kg
[~2019-08-16 21:23] MED LIST changes: -CODE10LI MT; -DULO30CA51 MT; +DULO30CA52 MT; +FLUT15.844 BOTHNSTRLS; -FLUT15.88 BOTHNSTRLS; +LISI-604 PO; -MONT10TA24 MT; +MONT10TA26 MT; +NIFE-32 PO; -NIFE60TA64 PO; +OMEP20CA14 MT; -OMEP20CA5 MT
[2019-08-16] MEDS ORDERED: ALBUTEROL (0.083%) 2.5MG/3ML NEB HHN STA (22:10)
[2019-08-16] MEDS ORDERED: IPRATROPIUM BROMIDE (0.02%) 0.5MG/2.5ML NEB HHN STA (22:10)
[2019-08-16] MEDS ORDERED: MORPHINE SULFATE 4 MG/ML CPJ (NOT FOR IM USE) IV ONE ×2 (22:15→23:30)
[2019-08-16] MEDS ORDERED: ONDANSETRON HCL 4MG/2ML INJ IV ONE (22:15)
[2019-08-16] MEDS ORDERED: SODIUM CHLORIDE 0.9% 1000ML BAG (SEPSIS BOLUS) IV ONE (22:15)
[2019-08-16] MEDS ORDERED: KETOROLAC 15MG/ML VIAL IV ONE (22:45)
[2019-08-16 23:19] LABS: CLARITY URINE CLEAR (CLEAR); COLOR URINE YELLOW (YELLOW); KETONES URINE NEGATIVE (NEGATIVE); LEUKOCYTE ESTERASE URINE NEGATIVE (NEGATIVE); NITRITE URINE NEGATIVE (NEGATIVE); OCCULT BLOOD URINE TRACE (NEGATIVE); PROTEIN URINE 1+ (NEGATIVE); SPECIFIC GRAVITY URINE 1.029 (1.005-1.030); UROBILINOGEN URINE 0.2 E.U./dL (0.2-1.0)
[2019-08-16 23:20] LABS: BASOPHILS % 0.3 % (0.0-2.0); EOSINOPHILS % 0.6 % (0.0-5.0); HEMATOCRIT. 38.1 % (36.0-48.0); HEMOGLOBIN. 11.8 g/dL (12.0-16.0); LYMPHOCYTES % 29.8 % (20.0-50.0); MEAN CORPUSCULAR HEMOGLOBIN 28.1 pg (28.0-32.0); MEAN CORPUSCULAR VOLUME 90.5 fL (81.0-99.0); MEAN PLATELET VOLUME 11.7 fl (7.4-10.4); NEUTROPHILS % 60.3 % (40.0-76.0); PLATELET 182 x1000/uL (130-400); RED BLOOD CELL COUNT 4.21 mill/uL (4.2-5.4); RED CELL DISTRIBUTION WIDTH 14.2 % (11.6-14.6)
[2019-08-16 23:25] LABS: INR 0.9; PROTHROMBIN TIME 9.8 sec (9.6-11.0)
[2019-08-16 23:27] LABS: CHLORIDE 101 mEq/L (98-107)
[2019-08-17] MEDS ORDERED: CEFTRIAXONE 1 G PREMIX 50 ML IV ONE
[2019-08-17] MEDS ORDERED: INSULIN REGULAR (HUMULIN R) 300UNITS/3ML IV ONE (01:00)
[2019-08-17] MEDS: SODIUM CHLORIDE 0.45% 1,000 ML IV SCH ×2 (07:31→21:37)
[2019-08-17] MEDS ORDERED: MAGNESIUM/ALUMINUM HYDROXIDE/SIMETHICONE 30ML UDC PO PRN (07:45)
[2019-08-17] MEDS ORDERED: HYDRALAZINE 20MG/ML VIAL IV PRN (07:45)
[2019-08-17] MEDS ORDERED: DEXTROSE 50% WATER 50ML SYRINGE IV PRN (07:45)
[2019-08-17] MEDS ORDERED: GUAIFENESIN 200MG/10ML SUGAR FREE UDC PO PRN (07:45)
[2019-08-17] MEDS ORDERED: LORAZEPAM 2MG/ML CPJ IV PRN (07:45)
[2019-08-17] MEDS ORDERED: ONDANSETRON HCL 4MG/2ML INJ IV PRN (07:45)
[2019-08-17] MEDS ORDERED: CLONIDINE 0.1MG TABLET PO PRN (07:45)
[2019-08-17] MEDS ORDERED: IPRATROPIUM/ALBUTEROL 0.5-3(2.5)MG/3ML NEB NEB PRN (07:45)
[2019-08-17] MEDS ORDERED: ACETAMINOPHEN 325MG TABLET PO PRN (07:45)
[2019-08-17] MEDS ORDERED: DOCUSATE SODIUM 100MG CAPSULE PO PRN (07:45)
[2019-08-17] MEDS ORDERED: DIPHENHYDRAMINE 50MG/ML VIAL IV PRN (07:45)
[2019-08-17] MEDS ORDERED: INSULIN GLARGINE UD 100 UNITS/ML SYR SUBCUT SCH (10:00)
[2019-08-17] MEDS: BLOOD SUGAR DIAGNOSTIC STRIP TEST SCH ×4 (10:30→20:30)
[2019-08-17] MEDS: HYDROCODONE/ACETAMINOPHEN 10/325MG TABLET PO PRN ×2 (11:45→19:12)
[2019-08-17] MEDS: INSULIN LISPRO 100 UNITS/ML SUBCUT SCH ×4 (11:51→21:00)
[2019-08-17] MEDS: ENOXAPARIN 40MG/0.4ML SYR SUBCUT SCH (11:57)
[2019-08-17 14:00] VITALS: BP 167/92
[2019-08-17] MEDS: SODIUM CHLORIDE 0.9% INJ 3ML FLUSH IVF SCH ×2 (14:00→21:36)
[2019-08-17 15:46] VITALS: BP 167/102
[2019-08-17 17:23] LABS: CREATINE KINASE 69 IU/L (26-192)
[2019-08-17 17:24] LABS: CREATINE KINASE MB FRACTION 6.2 ng/mL (0.5-3.6)
[2019-08-17 20:00] VITALS: BP 176/99
[2019-08-18] VITALS: BP 112/76
[2019-08-18 00:22] LABS: CREATINE KINASE 56 IU/L (26-192)
[2019-08-18 00:24] LABS: CREATINE KINASE MB FRACTION 5.6 ng/mL (0.5-3.6)
[2019-08-18] MEDS: KETOROLAC 30MG/ML VIAL IV PRN ×3 (03:30→16:57)
[2019-08-18 04:00] VITALS: BP 125/71
[2019-08-18] MEDS: BLOOD SUGAR DIAGNOSTIC STRIP TEST SCH ×2 (06:30→13:01)
[2019-08-18] MEDS: SODIUM CHLORIDE 0.9% INJ 3ML FLUSH IVF SCH (06:44)
[2019-08-18] MEDS: INSULIN LISPRO 100 UNITS/ML SUBCUT SCH ×2 (06:59→13:02)
[2019-08-18 08:00] VITALS: BP 177/94
[2019-08-18 09:35] LABS: BASOPHILS % 0.7 % (0.0-2.0); EOSINOPHILS % 1.1 % (0.0-5.0); HEMATOCRIT. 33.1 % (36.0-48.0); HEMOGLOBIN. 10.6 g/dL (12.0-16.0); LYMPHOCYTES % 40.3 % (20.0-50.0); MEAN PLATELET VOLUME 11.5 fl (7.4-10.4); MONOCYTES % 7.3 % (2.0-8.0); NEUTROPHILS % 50.6 % (40.0-76.0); PLATELET 155 x1000/uL (130-400); RED CELL DISTRIBUTION WIDTH 13.2 % (11.6-14.6)
[2019-08-18] MEDS: ENOXAPARIN 40MG/0.4ML SYR SUBCUT SCH (09:54)
[2019-08-18 10:30] LABS: CHLORIDE 105 mEq/L (98-107)
[2019-08-18 10:41] LABS: HDL CHOLESTEROL 48 mg/dL (40-59)
[2019-08-18 10:42] LABS: LDL CHOLESTEROL 90 mg/dL (5-100)
[2019-08-18 10:57] LABS: T4 FREE 1.11 ng/dL (0.76-1.46)
[2019-08-18] MEDS ORDERED: INSULIN GLARGINE UD 100 UNITS/ML SYR SUBCUT SCH (12:00)
[2019-08-18] MEDS: SODIUM CHLORIDE 0.45% 1,000 ML IV SCH (12:49)
[2019-08-18 14:53] VITALS: BP 177/94
[2019-08-18 16:57] VITALS: BP 177/94
== END 2019-08-18 20:10 | disposition home or self-care (01) | DRG 243 ==
LOC: ER 21:23 → 6WST 08-17 00:59 → EDBEDREQDT 08-17 01:02 → EDBEDREQ 08-17 01:02 → EDBEDREQTM 08-17 01:02 → CANRESERV 08-17 09:01 → ENRESERV 08-17 09:01 → CANRESERV 08-17 12:39 → ENRESERV 08-17 13:00
PROVIDERS: ADMIT Internal Medicine; ATTEND Internal Medicine
DX: K21.9 Gastro-esophageal reflux disease without esophagitis (principal); E11.00 Type 2 diabetes mellitus with hyperosmolarity without nonketotic hyperglycemic-hyperosmolar coma (NKHHC); E11.65 Type 2 diabetes mellitus with hyperglycemia; I10 Essential (primary) hypertension; J44.9 Chronic obstructive pulmonary disease, unspecified; M19.90 Unspecified osteoarthritis, unspecified site; Z79.4 Long term (current) use of insulin; Z79.899 Other long term (current) drug therapy; Z79.82 Long term (current) use of aspirin; Z88.8 Allergy status to other drugs, medicaments and biological substances
CPT/HCPCS: 36415; 71045; 80053; 80061; 81003; 82550; 82553; 82962; 83605; 84145; 84439; 84443; 84484; 85025; 87804; 93005; 93970; 94640; 99291; J0696; J1650; J1815; J1885; J2270; J2405; J7030

== ENCOUNTER 2019-11-14 19:55 | Inpatient (IN) | payer MEDICAID ==
[~2019-11-14] VITALS: Ht 167.6 cm; Wt 70.1 kg
[2019-11-14] MEDS ORDERED: SODIUM CHLORIDE 0.9% 1,000 ML IV ONE (21:25)
[2019-11-14 21:39] LABS: CLARITY URINE CLEAR (CLEAR); COLOR URINE YELLOW (YELLOW); KETONES URINE NEGATIVE (NEGATIVE); LEUKOCYTE ESTERASE URINE NEGATIVE (NEGATIVE); NITRITE URINE NEGATIVE (NEGATIVE); OCCULT BLOOD URINE NEGATIVE (NEGATIVE); PH URINE 6.5 (4.5-8.0); PROTEIN URINE 1+ (NEGATIVE); SPECIFIC GRAVITY URINE 1.028 (1.005-1.030)
[2019-11-14 21:47] LABS: BASOPHILS % 0.4 % (0.0-2.0); EOSINOPHILS % 0.5 % (0.0-5.0); HEMATOCRIT. 38.2 % (36.0-48.0); HEMOGLOBIN. 12.1 g/dL (12.0-16.0); LYMPHOCYTES % 30.9 % (20.0-50.0); MEAN CORPUSCULAR HEMOGLOBIN 28.2 pg (28.0-32.0); MEAN CORPUSCULAR VOLUME 89.2 fL (81.0-99.0); MEAN PLATELET VOLUME 12.1 fl (7.4-10.4); MONOCYTES % 7.9 % (2.0-8.0); NEUTROPHILS % 60.3 % (40.0-76.0); PLATELET 228 x1000/uL (130-400); RED BLOOD CELL COUNT 4.28 mill/uL (4.2-5.4); RED CELL DISTRIBUTION WIDTH 14.2 % (11.6-14.6)
[2019-11-14 21:48] LABS: CHLORIDE 92 mEq/L (98-107)
[2019-11-14 21:53] LABS: INR 0.9; PROTHROMBIN TIME 9.7 sec (9.6-11.0)
[2019-11-14 21:55] LABS: BETA HYDROXYBUTYRATE 0.2 mMol/L (0.0-0.3)
[2019-11-14] MEDS ORDERED: SODIUM CHLORIDE 0.9% 1,000 ML IV NR (23:00)
[2019-11-14] MEDS ORDERED: INSULIN REGULAR (HUMULIN R) 300UNITS/3ML SUBCUT NR (23:00)
[2019-11-14] MEDS ORDERED: KETOROLAC 15MG/ML VIAL IV NR (23:00)
[2019-11-15] MEDS ORDERED: INSULIN REGULAR (HUMULIN R) 300UNITS/3ML SUBCUT ONE (00:45)
[2019-11-15] MEDS ORDERED: GUAIFENESIN 200MG/10ML SUGAR FREE UDC PO PRN (03:45)
[2019-11-15] MEDS ORDERED: CLONIDINE 0.1MG TABLET PO PRN (03:45)
[2019-11-15] MEDS ORDERED: MAGNESIUM/ALUMINUM HYDROXIDE/SIMETHICONE 30ML UDC PO PRN (03:45)
[2019-11-15] MEDS ORDERED: ACETAMINOPHEN 325MG TABLET PO PRN (03:45)
[2019-11-15] MEDS ORDERED: DOCUSATE SODIUM 100MG CAPSULE PO PRN (03:45)
[2019-11-15] MEDS ORDERED: ONDANSETRON HCL 4MG/2ML INJ IV PRN (03:45)
[2019-11-15 05:30] VITALS: BP 188/93
[2019-11-15] MEDS ORDERED: DEXTROSE 50% WATER 50ML SYRINGE IV PRN (05:45)
[2019-11-15] MEDS: BLOOD SUGAR DIAGNOSTIC STRIP TEST SCH ×4 (06:17→21:17)
[2019-11-15] MEDS: INSULIN LISPRO 100 UNITS/ML SUBCUT SCH ×4 (06:18→23:13)
[2019-11-15] MEDS: AMLODIPINE 10MG TABLET PO SCH (06:19)
[2019-11-15] MEDS: HYDROCODONE/ACETAMINOPHEN 5/325MG TABLET PO PRN ×4 (06:20→21:25)
[2019-11-15] MEDS: SODIUM CHLORIDE 0.45% 1,000 ML IV SCH ×2 (06:27→21:28)
[2019-11-15] MEDS: METOPROLOL TARTRATE 25MG TABLET PO SCH ×2 (08:10→21:17)
[2019-11-15] MEDS: ENOXAPARIN 40MG/0.4ML SYR SUBCUT SCH (08:11)
[2019-11-15] MEDS: OMEPRAZOLE 20MG CAPSULE EXTENDED RELEASE PO SCH (08:26)
[2019-11-15] MEDS ORDERED: INSULIN GLARGINE UD 100 UNITS/ML SYR SUBCUT SCH (10:00)
[2019-11-15] MEDS: INSULIN GLARGINE UD 100 UNITS/ML SYR SUBCUT SCH (10:41)
[2019-11-15 12:00] VITALS: BP 134/81
[2019-11-15] MEDS: HYDRALAZINE HCL 100MG TABLET PO SCH ×2 (14:44→21:17)
[2019-11-15 14:53] VITALS: BP 154/90
[2019-11-15 20:00] VITALS: BP 147/86
[2019-11-16] VITALS: BP 124/77
[2019-11-16 04:00] VITALS: BP 122/56
[2019-11-16] MEDS: BLOOD SUGAR DIAGNOSTIC STRIP TEST SCH ×3 (06:39→16:35)
[2019-11-16] MEDS: OMEPRAZOLE 20MG CAPSULE EXTENDED RELEASE PO SCH (06:44)
[2019-11-16] MEDS: HYDRALAZINE HCL 100MG TABLET PO SCH ×2 (06:44→15:03)
[2019-11-16] MEDS: INSULIN LISPRO 100 UNITS/ML SUBCUT SCH ×3 (06:52→16:55)
[2019-11-16 07:00] LABS: BASOPHILS % 0.5 % (0.0-2.0); EOSINOPHILS % 1.7 % (0.0-5.0); HEMATOCRIT. 37.2 % (36.0-48.0); LYMPHOCYTES % 45.5 % (20.0-50.0); MEAN CORPUSCULAR HEMOGLOBIN 28.4 pg (28.0-32.0); MEAN CORPUSCULAR VOLUME 87.8 fL (81.0-99.0); MEAN PLATELET VOLUME 11.4 fl (7.4-10.4); MONOCYTES % 9.2 % (2.0-8.0); NEUTROPHILS % 43.1 % (40.0-76.0); PLATELET 176 x1000/uL (130-400); RED BLOOD CELL COUNT 4.24 mill/uL (4.2-5.4); RED CELL DISTRIBUTION WIDTH 14.2 % (11.6-14.6)
[2019-11-16 08:00] VITALS: BP 139/77
[2019-11-16 08:01] LABS: CHLORIDE 104 mEq/L (98-107)
[2019-11-16] MEDS: AMLODIPINE 10MG TABLET PO SCH (09:44)
[2019-11-16] MEDS: METOPROLOL TARTRATE 25MG TABLET PO SCH (09:44)
[2019-11-16] MEDS: ENOXAPARIN 40MG/0.4ML SYR SUBCUT SCH (09:45)
[2019-11-16] MEDS: SODIUM CHLORIDE 0.45% 1,000 ML IV SCH (09:46)
[2019-11-16] MEDS: INSULIN GLARGINE UD 100 UNITS/ML SYR SUBCUT SCH (09:46)
[2019-11-16 12:00] VITALS: BP 140/78
[2019-11-16 16:00] VITALS: BP 142/68
[2019-11-16 17:28] VITALS: BP 142/68
== END 2019-11-16 20:55 | disposition home or self-care (01) | DRG 420 ==
LOC: ER 19:55 → 5WST 11-15 00:40 → EDBEDREQ 11-15 00:48 → ENRESERV 11-15 04:10
PROVIDERS: ADMIT Hospitalist; ATTEND Hospitalist
DX: E11.65 Type 2 diabetes mellitus with hyperglycemia (principal); E11.40 Type 2 diabetes mellitus with diabetic neuropathy, unspecified; F03.90 Unspecified dementia, unspecified severity, without behavioral disturbance, psychotic disturbance, mood disturbance, and anxiety; I10 Essential (primary) hypertension; M19.90 Unspecified osteoarthritis, unspecified site; F17.200 Nicotine dependence, unspecified, uncomplicated; F12.90 Cannabis use, unspecified, uncomplicated; Z88.5 Allergy status to narcotic agent; Z79.4 Long term (current) use of insulin; Z79.82 Long term (current) use of aspirin; Z79.899 Other long term (current) drug therapy; Z79.891 Long term (current) use of opiate analgesic; Z72.89 Other problems related to lifestyle; Z91.19 Patient's noncompliance with other medical treatment and regimen
CPT/HCPCS: 36415; 71045; 80053; 81003; 82010; 82962; 83036; 84484; 85025; 93005; 96372; 97110; 97116; 97162; 99285; J1650; J1815; J1885; J7030

== ENCOUNTER 2020-09-14 09:36 | Inpatient (IN) | payer MEDICAID ==
[~2020-09-14] VITALS: Ht 170.2 cm; Wt 66.0 kg
[~2020-09-14 09:36] MED LIST changes: -ASPI-1158 PO; +ASPI-1406 PO; -LISI-604 PO; +LISI20TA31 PO; -MONT10TA26 MT; +MONT10TA32 MT
[2020-09-14] MEDS ORDERED: SODIUM CHLORIDE 0.9% 1,000 ML IV ONE (10:00)
[2020-09-14 10:18] LABS: CLARITY URINE CLEAR (CLEAR); COLOR URINE YELLOW (YELLOW); KETONES URINE TRACE (NEGATIVE); LEUKOCYTE ESTERASE URINE NEGATIVE (NEGATIVE); NITRITE URINE NEGATIVE (NEGATIVE); OCCULT BLOOD URINE NEGATIVE (NEGATIVE); PROTEIN URINE 2+ (NEGATIVE); SPECIFIC GRAVITY URINE 1.031 (1.005-1.030); UROBILINOGEN URINE 0.2 E.U./dL (0.2-1.0)
[2020-09-14 10:59] LABS: BASOPHILS % 0.5 % (0.0-2.0); EOSINOPHILS % 1.1 % (0.0-5.0); HEMATOCRIT. 41.1 % (36.0-48.0); MEAN CORPUSCULAR HEMOGLOBIN 27.8 pg (28.0-32.0); MEAN CORPUSCULAR VOLUME 87.8 fL (81.0-99.0); MEAN PLATELET VOLUME 11.4 fl (7.4-10.4); MONOCYTES % 6.1 % (2.0-8.0); NEUTROPHILS % 60.3 % (40.0-76.0); PLATELET 228 x1000/uL (130-400); RED BLOOD CELL COUNT 4.69 mill/uL (4.2-5.4); RED CELL DISTRIBUTION WIDTH 13.7 % (11.6-14.6)
[2020-09-14 11:04] LABS: BG BASE EXCESS 3.4 mmol/L (-2.0-2.0); BG CARBOXYHEMOGLOBIN 0.9 % (0.5-1.5); BG DEOXYHEMOGLOBIN 6.3 % (0.0-5.0); BG FRACTION INSPIRED OXYGEN 21; BG HCO3 ACT 29.1 mmol/L (22.0-26.0); BG OXYGEN SATURATION 93.6 % (92.0-98.5); BG OXYHEMOGLOBIN 92.8 % (94.0-97.0); BG PCO2 48.2 mmHg (35.0-45.0); BG PH 7.398 (7.350-7.450); BG PO2 70.4 mmHg (75.0-100.0); BG SAMPLE SITE RIGHT RADIAL; BG TOTAL HEMOGLOBIN 13.1 g/dL (12.0-18.0); BG VENT MODE ROOM AIR
[2020-09-14 11:05] LABS: CHLORIDE 102 mEq/L (98-107); PROTHROMBIN TIME 10.3 sec (9.6-11.0)
[2020-09-14 11:08] LABS: *AMPHETAMINES SCREEN URINE NEGATIVE (NEGATIVE); *BARBITURATES SCREEN URINE NEGATIVE (NEGATIVE); *BENZODIAZEPINES SCREEN URINE NEGATIVE (NEGATIVE); *COCAINE SCREEN URINE PRESUMTIVE POSITIVE (NEGATIVE); METHADONE URINE SCREEN NEGATIVE (NEGATIVE); OPIATES URINE SCREEN NEGATIVE (NEGATIVE)
[2020-09-14 11:09] LABS: CANNABINOID URINE SCREEN NEGATIVE (NEGATIVE); PHENCYCLIDINE URINE SCREEN PRESUMTIVE POSITIVE (NEGATIVE)
[2020-09-14 11:13] LABS: ETHANOL BLOOD < 10 mg/dL
[2020-09-14 11:14] LABS: BETA HYDROXYBUTYRATE 1.5 mMol/L (0.0-0.3)
[2020-09-14] MEDS ORDERED: INSULIN REGULAR (HUMULIN R) 300UNITS/3ML VIAL IV NR (11:15)
[2020-09-14] MEDS ORDERED: SODIUM CHLORIDE 0.9% 1,000 ML IV NR (11:15)
[2020-09-14] MEDS ORDERED: KETOROLAC 30MG/ML VIAL IV ONE (11:30)
[2020-09-14 17:00] VITALS: BP 199/102
[2020-09-14] MEDS ORDERED: IPRATROPIUM/ALBUTEROL 0.5-3(2.5)MG/3ML NEB NEB PRN (17:15)
[2020-09-14] MEDS ORDERED: DIPHENHYDRAMINE 50MG/ML VIAL IV PRN (17:15)
[2020-09-14] MEDS ORDERED: HYDRALAZINE 20MG/ML VIAL IV PRN (17:15)
[2020-09-14] MEDS ORDERED: CLONIDINE 0.1MG TABLET PO PRN (17:15)
[2020-09-14] MEDS ORDERED: DEXTROSE 50% WATER 50ML SYRINGE IV PRN (17:15)
[2020-09-14] MEDS ORDERED: ONDANSETRON HCL 4MG/2ML INJ IV PRN (17:15)
[2020-09-14] MEDS ORDERED: LORAZEPAM 2MG/ML CPJ IV PRN (17:15)
[2020-09-14] MEDS: BLOOD SUGAR DIAGNOSTIC STRIP TEST SCH ×2 (17:53→20:46)
[2020-09-14] MEDS: INSULIN LISPRO 100 UNITS/ML SUBCUT SCH ×2 (18:38→20:45)
[2020-09-14] MEDS: ENOXAPARIN 40MG/0.4ML SYR SUBCUT SCH (18:41)
[2020-09-14 20:00] VITALS: BP 117/78
[2020-09-14] MEDS: SODIUM CHLORIDE 0.45% 1,000 ML IV SCH (20:45)
[2020-09-14] MEDS ORDERED: INSULIN GLARGINE UD 100 UNITS/ML SYR SUBCUT SCH (21:00)
[2020-09-14] MEDS: HYDRALAZINE HCL 50MG TABLET PO SCH (21:00)
[2020-09-14] MEDS ORDERED: INSULIN LISPRO 100 UNITS/ML SUBCUT NR (21:00)
[2020-09-14] MEDS: TRAMADOL 50MG TABLET PO PRN (21:45)
[2020-09-14] MEDS: SODIUM CHLORIDE 0.9% INJ 3ML FLUSH IVF SCH (21:45)
[2020-09-14] MEDS: INSULIN GLARGINE UD 100 UNITS/ML SYR SUBCUT SCH (22:33)
[2020-09-14] MEDS ORDERED: LABETALOL 5MG/ML SYR 20 MG/4 ML SYRINGE IV PRN (23:00)
[2020-09-14] MEDS ORDERED: CLONIDINE 0.3MG TABLET PO PRN (23:15)
[2020-09-15] VITALS: BP 132/77
[2020-09-15] MEDS: GUAIFENESIN 200MG/10ML SUGAR FREE UDC PO PRN (00:12)
[2020-09-15 01:13] LABS: CHLORIDE 104 mEq/L (98-107)
[2020-09-15 01:23] LABS: CREATINE KINASE 37 IU/L (26-192)
[2020-09-15 01:25] LABS: CREATINE KINASE MB FRACTION 1.3 ng/mL (0.5-3.6)
[2020-09-15 04:00] VITALS: BP 143/83
[2020-09-15] MEDS: ACETAMINOPHEN 325MG TABLET PO PRN ×2 (04:41→09:41)
[2020-09-15] MEDS ORDERED: POTASSIUM CHLORIDE INJ 40 MEQ in DEXT 5% WATER 250 ML IV NR (05:00)
[2020-09-15 05:53] LABS: BASOPHILS % 0.8 % (0.0-2.0); EOSINOPHILS % 1.9 % (0.0-5.0); HEMATOCRIT. 32.6 % (36.0-48.0); HEMOGLOBIN. 10.5 g/dL (12.0-16.0); LYMPHOCYTES % 41.7 % (20.0-50.0); MEAN CORPUSCULAR HEMOGLOBIN 27.5 pg (28.0-32.0); MEAN CORPUSCULAR VOLUME 85.6 fL (81.0-99.0); MEAN PLATELET VOLUME 10.9 fl (7.4-10.4); MONOCYTES % 9.4 % (2.0-8.0); NEUTROPHILS % 46.2 % (40.0-76.0); PLATELET 203 x1000/uL (130-400); RED BLOOD CELL COUNT 3.81 mill/uL (4.2-5.4); RED CELL DISTRIBUTION WIDTH 13.6 % (11.6-14.6)
[2020-09-15 05:56] LABS: CHLORIDE 101 mEq/L (98-107)
[2020-09-15 06:06] LABS: LDL CHOLESTEROL 40 mg/dL (5-100)
[2020-09-15 06:07] LABS: CREATINE KINASE 35 IU/L (26-192); CREATINE KINASE MB FRACTION 1.3 ng/mL (0.5-3.6); HDL CHOLESTEROL 42 mg/dL (40-59); T4 FREE 1.17 ng/dL (0.76-1.46)
[2020-09-15] MEDS: HYDRALAZINE HCL 50MG TABLET PO SCH ×3 (06:16→21:25)
[2020-09-15] MEDS: TRAMADOL 50MG TABLET PO PRN (06:16)
[2020-09-15] MEDS: SODIUM CHLORIDE 0.9% INJ 3ML FLUSH IVF SCH ×3 (06:22→21:26)
[2020-09-15] MEDS: INSULIN LISPRO 100 UNITS/ML SUBCUT SCH ×4 (06:22→21:25)
[2020-09-15] MEDS: BLOOD SUGAR DIAGNOSTIC STRIP TEST SCH ×4 (07:50→21:12)
[2020-09-15 08:00] VITALS: BP 126/77
[2020-09-15] MEDS ORDERED: POTASSIUM CHLORIDE 20MEQ TABLET SR PO NR (09:30)
[2020-09-15] MEDS: INSULIN GLARGINE UD 100 UNITS/ML SYR SUBCUT SCH ×2 (09:39→21:25)
[2020-09-15] MEDS: SODIUM CHLORIDE 0.45% 1,000 ML IV SCH ×2 (09:50→23:10)
[2020-09-15 12:00] VITALS: BP 134/83
[2020-09-15 16:00] VITALS: BP 148/84
[2020-09-15] MEDS: ENOXAPARIN 40MG/0.4ML SYR SUBCUT SCH (18:08)
[2020-09-15 20:00] VITALS: BP 124/70
[2020-09-16] VITALS (7 sets, daily range): BP systolic 119–177; BP diastolic 62–99
[2020-09-16] MEDS: TRAMADOL 50MG TABLET PO PRN ×3 (00:27→22:07)
[2020-09-16] MEDS: ACETAMINOPHEN 325MG TABLET PO PRN ×2 (04:41→18:52)
[2020-09-16] MEDS: BLOOD SUGAR DIAGNOSTIC STRIP TEST SCH ×4 (06:34→20:18)
[2020-09-16] MEDS: SODIUM CHLORIDE 0.9% INJ 3ML FLUSH IVF SCH ×3 (06:34→22:08)
[2020-09-16] MEDS: HYDRALAZINE HCL 50MG TABLET PO SCH ×3 (06:34→22:07)
[2020-09-16 07:04] LABS: BASOPHILS % 0.4 % (0.0-2.0); EOSINOPHILS % 1.4 % (0.0-5.0); HEMATOCRIT. 33.4 % (36.0-48.0); HEMOGLOBIN. 10.5 g/dL (12.0-16.0); LYMPHOCYTES % 40.4 % (20.0-50.0); MEAN CORPUSCULAR HEMOGLOBIN 27.3 pg (28.0-32.0); MEAN CORPUSCULAR VOLUME 86.5 fL (81.0-99.0); MEAN PLATELET VOLUME 10.8 fl (7.4-10.4); MONOCYTES % 9.1 % (2.0-8.0); NEUTROPHILS % 48.7 % (40.0-76.0); PLATELET 178 x1000/uL (130-400); RED BLOOD CELL COUNT 3.86 mill/uL (4.2-5.4); RED CELL DISTRIBUTION WIDTH 13.6 % (11.6-14.6)
[2020-09-16 07:39] LABS: CHLORIDE 104 mEq/L (98-107)
[2020-09-16] MEDS: INSULIN LISPRO 100 UNITS/ML SUBCUT SCH ×4 (08:08→20:31)
[2020-09-16] MEDS: INSULIN GLARGINE UD 100 UNITS/ML SYR SUBCUT SCH ×2 (09:53→21:29)
[2020-09-16] MEDS: SODIUM CHLORIDE 0.45% 1,000 ML IV SCH (12:21)
[2020-09-16] MEDS: MAGNESIUM/ALUMINUM HYDROXIDE/SIMETHICONE 30ML UDC PO PRN ×2 (12:44→18:51)
[2020-09-16] MEDS: ENOXAPARIN 40MG/0.4ML SYR SUBCUT SCH (17:29)
[2020-09-16] MEDS: DOCUSATE SODIUM 100MG CAPSULE PO PRN (20:19)
[2020-09-17] VITALS: BP 105/58
[2020-09-17] MEDS: SODIUM CHLORIDE 0.45% 1,000 ML IV SCH ×2 (01:49→15:19)
[2020-09-17 04:00] VITALS: BP 108/68
[2020-09-17] MEDS: HYDRALAZINE HCL 50MG TABLET PO SCH ×3 (06:00→21:12)
[2020-09-17] MEDS: BLOOD SUGAR DIAGNOSTIC STRIP TEST SCH ×4 (06:30→21:13)
[2020-09-17] MEDS: SODIUM CHLORIDE 0.9% INJ 3ML FLUSH IVF SCH ×3 (06:31→22:25)
[2020-09-17 08:09] VITALS: BP 150/86
[2020-09-17] MEDS: ACETAMINOPHEN 325MG TABLET PO PRN (08:35)
[2020-09-17] MEDS: INSULIN LISPRO 100 UNITS/ML SUBCUT SCH ×4 (08:37→21:10)
[2020-09-17] MEDS: INSULIN GLARGINE UD 100 UNITS/ML SYR SUBCUT SCH ×2 (10:30→21:11)
[2020-09-17 12:11] VITALS: BP 136/86
[2020-09-17] MEDS: TRAMADOL 50MG TABLET PO PRN ×2 (13:47→21:13)
[2020-09-17 16:17] VITALS: BP 124/68
[2020-09-17] MEDS: ENOXAPARIN 40MG/0.4ML SYR SUBCUT SCH (18:00)
[2020-09-17 20:00] VITALS: BP 148/86
[2020-09-17] MEDS: GUAIFENESIN 200MG/10ML SUGAR FREE UDC PO PRN (21:13)
[2020-09-17] MEDS: DOCUSATE SODIUM 100MG CAPSULE PO PRN (21:19)
[2020-09-18] VITALS (7 sets, daily range): BP systolic 113–161; BP diastolic 59–92
[2020-09-18] MEDS: MAGNESIUM/ALUMINUM HYDROXIDE/SIMETHICONE 30ML UDC PO PRN (00:26)
[2020-09-18] MEDS: ACETAMINOPHEN 325MG TABLET PO PRN ×2 (00:48→11:12)
[2020-09-18] MEDS: BLOOD SUGAR DIAGNOSTIC STRIP TEST SCH ×2 (06:26→12:31)
[2020-09-18] MEDS: SODIUM CHLORIDE 0.9% INJ 3ML FLUSH IVF SCH ×2 (06:26→14:00)
[2020-09-18] MEDS: HYDRALAZINE HCL 50MG TABLET PO SCH ×2 (06:26→14:00)
[2020-09-18] MEDS: INSULIN LISPRO 100 UNITS/ML SUBCUT SCH ×2 (09:33→12:40)
[2020-09-18] MEDS: INSULIN GLARGINE UD 100 UNITS/ML SYR SUBCUT SCH (09:33)
== END 2020-09-18 17:00 | disposition home or self-care (01) | DRG 420 ==
LOC: ER 09:36 → 6WST 13:50 → EDBEDREQTM 15:01 → EDBEDREQ 15:01 → ENRESERV 15:31
PROVIDERS: ADMIT Internal Medicine; ATTEND Internal Medicine
DX: E11.00 Type 2 diabetes mellitus with hyperosmolarity without nonketotic hyperglycemic-hyperosmolar coma (NKHHC) (principal); F14.10 Cocaine abuse, uncomplicated; E86.0 Dehydration; E87.1 Hypo-osmolality and hyponatremia; F17.200 Nicotine dependence, unspecified, uncomplicated; F16.10 Hallucinogen abuse, uncomplicated; J44.9 Chronic obstructive pulmonary disease, unspecified; Z76.5 Malingerer [conscious simulation]; Z88.5 Allergy status to narcotic agent; Z79.899 Other long term (current) drug therapy; Z79.4 Long term (current) use of insulin; Z79.82 Long term (current) use of aspirin; Z91.19 Patient's noncompliance with other medical treatment and regimen; I10 Essential (primary) hypertension
CPT/HCPCS: 36415; 36600; 71045; 80048; 80053; 80061; 80305; 80320; 81003; 82010; 82270; 82375; 82550; 82553; 82805; 82947; 82962; 83036; 83880; 84439; 84443; 84484; 85025; 93005; 99285; C1893; J0360; J1650; J1815; J1885; J2060; J2405; J3480; J7030; J7060; G0480

== ENCOUNTER 2020-10-02 09:48 | Inpatient (IN) | payer MEDICAID ==
[~2020-10-02] VITALS: Ht 167.6 cm; Wt 63.7 kg
[2020-10-02] MEDS ORDERED: SODIUM CHLORIDE 0.9% 1,000 ML IV ONE (10:00)
[2020-10-02 10:21] LABS: BG BASE EXCESS -3.5 mmol/L (-2.0-2.0); BG CARBOXYHEMOGLOBIN 2.1 % (0.5-1.5); BG DEOXYHEMOGLOBIN 2.6 % (0.0-5.0); BG FRACTION INSPIRED OXYGEN 21; BG OXYGEN SATURATION 97.3 % (92.0-98.5); BG OXYHEMOGLOBIN 95.3 % (94.0-97.0); BG PH 7.383 (7.350-7.450); BG PO2 99.2 mmHg (75.0-100.0); BG SAMPLE SITE RIGHT BRACHIAL; BG VENT MODE ROOM AIR
[2020-10-02 10:33] LABS: BASOPHILS % 0.8 % (0.0-2.0); EOSINOPHILS % 0.5 % (0.0-5.0); HEMATOCRIT. 40.4 % (36.0-48.0); HEMOGLOBIN. 12.5 g/dL (12.0-16.0); LYMPHOCYTES % 22.3 % (20.0-50.0); MEAN CORPUSCULAR HEMOGLOBIN 27.1 pg (28.0-32.0); MEAN CORPUSCULAR VOLUME 87.4 fL (81.0-99.0); MEAN PLATELET VOLUME 10.8 fl (7.4-10.4); MONOCYTES % 6.5 % (2.0-8.0); NEUTROPHILS % 69.9 % (40.0-76.0); PLATELET 273 x1000/uL (130-400); RED BLOOD CELL COUNT 4.62 mill/uL (4.2-5.4); RED CELL DISTRIBUTION WIDTH 13.7 % (11.6-14.6)
[2020-10-02 10:41] LABS: CHLORIDE 89 mEq/L (98-107)
[2020-10-02 10:49] LABS: BETA HYDROXYBUTYRATE 0.2 mMol/L (0.0-0.3)
[2020-10-02] MEDS ORDERED: KETOROLAC 30MG/ML VIAL IV ONE (11:45)
[2020-10-02] MEDS ORDERED: INSULIN REGULAR (HUMULIN R) 300UNITS/3ML VIAL IV ONE (11:45)
[2020-10-02] MEDS ORDERED: INSULIN REGULAR (HUMULIN R) 300UNITS/3ML VIAL IV NR (17:21)
[2020-10-02] MEDS ORDERED: MAGNESIUM/ALUMINUM HYDROXIDE/SIMETHICONE 30ML UDC PO PRN (21:15)
[2020-10-02] MEDS ORDERED: ONDANSETRON HCL 4MG/2ML INJ IV PRN (21:15)
[2020-10-02] MEDS ORDERED: LORAZEPAM 2MG/ML CPJ IV PRN (21:15)
[2020-10-02] MEDS ORDERED: CLONIDINE 0.1MG TABLET PO PRN (21:15)
[2020-10-02] MEDS ORDERED: GUAIFENESIN 200MG/10ML SUGAR FREE UDC PO PRN (21:15)
[2020-10-02] MEDS ORDERED: DOCUSATE SODIUM 100MG CAPSULE PO PRN (21:15)
[2020-10-02] MEDS ORDERED: IPRATROPIUM/ALBUTEROL 0.5-3(2.5)MG/3ML NEB NEB PRN (21:15)
[2020-10-02] MEDS ORDERED: NA PHOS,M-B/NA PHOS,DI-BA ENEMA 118ML PR PRN (21:15)
[2020-10-02 21:58] LABS: CHLORIDE 95 mEq/L (98-107)
[2020-10-02] MEDS ORDERED: DEXTROSE 50% WATER 50ML SYRINGE IV PRN (22:30)
[2020-10-02] MEDS ORDERED: INSULIN LISPRO 100 UNITS/ML SUBCUT PRN (22:59)
[2020-10-02] MEDS: INSULIN LISPRO 100 UNITS/ML SUBCUT SCH (23:00)
[2020-10-02] MEDS: ENOXAPARIN 40MG/0.4ML SYR SUBCUT SCH (23:26)
[2020-10-02] MEDS: BLOOD SUGAR DIAGNOSTIC STRIP TEST SCH (23:38)
[2020-10-02] MEDS: INSULIN GLARGINE UD 100 UNITS/ML SYR SUBCUT SCH (23:50)
[2020-10-02] MEDS: HYDROCODONE/ACETAMINOPHEN 5/325MG TABLET PO PRN (23:53)
[2020-10-03] VITALS (7 sets, daily range): BP systolic 104–146; BP diastolic 56–91
[2020-10-03] MEDS: ACETAMINOPHEN 325MG TABLET PO PRN (03:02)
[2020-10-03] MEDS: SODIUM CHLORIDE 0.45% 1,000 ML IV SCH ×2 (03:02→21:32)
[2020-10-03 06:36] LABS: BASOPHILS % 0.4 % (0.0-2.0); EOSINOPHILS % 1.8 % (0.0-5.0); HEMATOCRIT. 32.6 % (36.0-48.0); HEMOGLOBIN. 10.7 g/dL (12.0-16.0); LYMPHOCYTES % 41.5 % (20.0-50.0); MEAN CORPUSCULAR HEMOGLOBIN 27.8 pg (28.0-32.0); MEAN CORPUSCULAR VOLUME 84.5 fL (81.0-99.0); MEAN PLATELET VOLUME 10.9 fl (7.4-10.4); NEUTROPHILS % 49.3 % (40.0-76.0); PLATELET 218 x1000/uL (130-400); RED BLOOD CELL COUNT 3.86 mill/uL (4.2-5.4); RED CELL DISTRIBUTION WIDTH 13.6 % (11.6-14.6)
[2020-10-03] MEDS: BLOOD SUGAR DIAGNOSTIC STRIP TEST SCH ×4 (07:10→21:32)
[2020-10-03 07:15] LABS: CHLORIDE 102 mEq/L (98-107)
[2020-10-03 07:23] LABS: LDL CHOLESTEROL 30 mg/dL (5-100)
[2020-10-03 07:25] LABS: HDL CHOLESTEROL 42 mg/dL (40-59); T4 FREE 1.32 ng/dL (0.76-1.46)
[2020-10-03] MEDS ORDERED: INSULIN LISPRO 100 UNITS/ML SUBCUT SCH (07:40)
[2020-10-03] MEDS ORDERED: PNEUMOCOCCAL 23-VAL P-SAC VAC 0.5 ML IM ONE (08:00)
[2020-10-03] MEDS: ASPIRIN 81MG EC TABLET PO SCH (09:01)
[2020-10-03] MEDS: INSULIN LISPRO 100 UNITS/ML SUBCUT SCH ×4 (09:03→21:26)
[2020-10-03] MEDS ORDERED: INFLUENZA VACCINE 05/PF 0.5 ML VIAL IM ONE (10:00)
[2020-10-03 10:13] LABS: T4 FREE 1.5 ng/dL (0.76-1.46)
[2020-10-03] MEDS: HYDROCODONE/ACETAMINOPHEN 5/325MG TABLET PO PRN (10:15)
[2020-10-03 17:02] LABS: CREATINE KINASE 29 IU/L (26-192)
[2020-10-03 17:03] LABS: CREATINE KINASE MB FRACTION < 1.0 ng/mL (0.5-3.6)
[2020-10-03] MEDS: HYDROMORPHONE HCL/PF 2MG/ML CPJ IV PRN (19:54)
[2020-10-03] MEDS: ENOXAPARIN 40MG/0.4ML SYR SUBCUT SCH (21:25)
[2020-10-03] MEDS: INSULIN GLARGINE UD 100 UNITS/ML SYR SUBCUT SCH (21:27)
[2020-10-04] VITALS: BP 131/73
[2020-10-04 00:51] LABS: CREATINE KINASE 26 IU/L (26-192)
[2020-10-04 00:53] LABS: CREATINE KINASE MB FRACTION < 1.0 ng/mL (0.5-3.6)
[2020-10-04] MEDS: HYDROMORPHONE HCL/PF 2MG/ML CPJ IV PRN (02:25)
[2020-10-04 04:00] VITALS: BP 137/70
[2020-10-04] MEDS: DIPHENHYDRAMINE 50MG/ML VIAL IV PRN ×3 (04:16→21:19)
[2020-10-04] MEDS: BLOOD SUGAR DIAGNOSTIC STRIP TEST SCH ×4 (06:08→21:15)
[2020-10-04] MEDS: INSULIN LISPRO 100 UNITS/ML SUBCUT SCH ×4 (06:09→21:18)
[2020-10-04 06:41] LABS: CREATINE KINASE 26 IU/L (26-192)
[2020-10-04 06:44] LABS: CREATINE KINASE MB FRACTION < 1.0 ng/mL (0.5-3.6)
[2020-10-04 08:15] VITALS: BP 142/88
[2020-10-04] MEDS: ASPIRIN 81MG EC TABLET PO SCH (09:01)
[2020-10-04] MEDS ORDERED: INFLUENZA VACCINE 05/PF 0.5 ML VIAL IM ONE (10:15)
[2020-10-04 12:00] VITALS: BP 157/83
[2020-10-04 16:06] VITALS: BP 150/76
[2020-10-04] MEDS: ACETAMINOPHEN 325MG TABLET PO PRN (18:42)
[2020-10-04 20:00] VITALS: BP 147/75
[2020-10-04] MEDS: ENOXAPARIN 40MG/0.4ML SYR SUBCUT SCH (21:15)
[2020-10-04] MEDS: INSULIN GLARGINE UD 100 UNITS/ML SYR SUBCUT SCH (21:18)
[2020-10-04] MEDS: SODIUM CHLORIDE 0.45% 1,000 ML IV SCH (21:19)
[2020-10-05] VITALS: BP 167/89
[2020-10-05] MEDS: HYDROMORPHONE HCL/PF 2MG/ML CPJ IV PRN (00:12)
[2020-10-05 04:00] VITALS: BP 169/89
[2020-10-05] MEDS: HYDROCODONE/ACETAMINOPHEN 5/325MG TABLET PO PRN (05:47)
[2020-10-05] MEDS: INSULIN LISPRO 100 UNITS/ML SUBCUT SCH ×2 (06:25→13:13)
[2020-10-05] MEDS: BLOOD SUGAR DIAGNOSTIC STRIP TEST SCH ×2 (07:19→12:10)
[2020-10-05 08:00] VITALS: BP 168/75
[2020-10-05] MEDS: ASPIRIN 81MG EC TABLET PO SCH (08:35)
[2020-10-05 11:37] VITALS: BP 134/89
[2020-10-05 12:06] VITALS: BP 134/89
== END 2020-10-05 13:30 | disposition home or self-care (01) | DRG 198 ==
LOC: ER 09:48 → 8WST 12:29 → ENRESERV 13:28 → 8WST 20:51
PROVIDERS: ADMIT Internal Medicine; ATTEND Internal Medicine
DX: I24.9 Acute ischemic heart disease, unspecified (principal); E11.65 Type 2 diabetes mellitus with hyperglycemia; I11.0 Hypertensive heart disease with heart failure; I50.9 Heart failure, unspecified; E78.5 Hyperlipidemia, unspecified; J45.909 Unspecified asthma, uncomplicated; E86.0 Dehydration; Z88.5 Allergy status to narcotic agent; Z79.899 Other long term (current) drug therapy; Z82.49 Family history of ischemic heart disease and other diseases of the circulatory system; Z83.3 Family history of diabetes mellitus; Z80.8 Family history of malignant neoplasm of other organs or systems; E11.00 Type 2 diabetes mellitus with hyperosmolarity without nonketotic hyperglycemic-hyperosmolar coma (NKHHC)
CPT/HCPCS: 36415; 36600; 71045; 80048; 80053; 80061; 82010; 82375; 82550; 82553; 82805; 82962; 83036; 83880; 84439; 84443; 84484; 85025; 85379; 90686; 90732; 93005; 93306; 99285; J1170; J1200; J1650; J1815; J1885; J2405; J7030

== ENCOUNTER 2020-10-22 18:11 | Emergency (ER) | payer MEDICAID ==
[~2020-10-22] VITALS: Ht 175.3 cm; Wt 68.0 kg
[~2020-10-22 18:11] MED LIST changes: +ALBU18HF2 IH; +FLUT1DIS3 INH; +INSU100I28 SQ; +IPRA3AMP9 NEB; -LANTUSUD SUBCUT
[2020-10-22] MEDS ORDERED: SODIUM CHLORIDE 0.9% 1,000 ML IV ONE ×2 (18:30→20:30)
[2020-10-22] MEDS ORDERED: KETOROLAC 30MG/ML VIAL IV ONE (19:15)
[2020-10-22 19:33] LABS: BASOPHILS % 0.6 % (0.0-2.0); EOSINOPHILS % 0.7 % (0.0-5.0); HEMATOCRIT. 33.8 % (36.0-48.0); HEMOGLOBIN. 10.9 g/dL (12.0-16.0); LYMPHOCYTES % 33.3 % (20.0-50.0); MEAN CORPUSCULAR HEMOGLOBIN 28.4 pg (28.0-32.0); MEAN CORPUSCULAR VOLUME 88.1 fL (81.0-99.0); MEAN PLATELET VOLUME 10.1 fl (7.4-10.4); MONOCYTES % 6.8 % (2.0-8.0); NEUTROPHILS % 58.6 % (40.0-76.0); PLATELET 244 x1000/uL (130-400); RED BLOOD CELL COUNT 3.84 mill/uL (4.2-5.4)
[2020-10-22 19:38] LABS: CHLORIDE 97 mEq/L (98-107)
[2020-10-22 19:41] LABS: CLARITY URINE CLEAR (CLEAR); COLOR URINE YELLOW (YELLOW); KETONES URINE NEGATIVE (NEGATIVE); LEUKOCYTE ESTERASE URINE NEGATIVE (NEGATIVE); NITRITE URINE NEGATIVE (NEGATIVE); OCCULT BLOOD URINE NEGATIVE (NEGATIVE); PROTEIN URINE 1+ (NEGATIVE); SPECIFIC GRAVITY URINE 1.025 (1.005-1.030); UROBILINOGEN URINE 0.2 E.U./dL (0.2-1.0)
[2020-10-22] MEDS ORDERED: BENZONATATE 100MG CAPSULE PO ONE (19:45)
[2020-10-22 19:50] LABS: METHADONE URINE SCREEN NEGATIVE (NEGATIVE); OPIATES URINE SCREEN NEGATIVE (NEGATIVE)
[2020-10-22 19:51] LABS: *AMPHETAMINES SCREEN URINE NEGATIVE (NEGATIVE); *BARBITURATES SCREEN URINE NEGATIVE (NEGATIVE); *BENZODIAZEPINES SCREEN URINE NEGATIVE (NEGATIVE); *COCAINE SCREEN URINE PRESUMTIVE POSITIVE (NEGATIVE); CANNABINOID URINE SCREEN NEGATIVE (NEGATIVE); PHENCYCLIDINE URINE SCREEN PRESUMTIVE POSITIVE (NEGATIVE)
[2020-10-22] MEDS ORDERED: INSULIN REGULAR (HUMULIN R) 300UNITS/3ML VIAL IV ONE (20:30)
[2020-10-22] MEDS ORDERED: METH-653 MT (23:43)
[2020-10-22] MEDS ORDERED: ALBU6.7H9 INH (23:43)
[2020-10-22] MEDS ORDERED: INSLIS SUBCUT (23:43)
[2020-10-22] MEDS ORDERED: IBUP-2029 MT (23:43)
[2020-10-22] MEDS ORDERED: METHOCARBAMOL 500MG TABLET PO ONE (23:45)
[2020-10-23 01:27] VITALS: BP 159/85
== END 2020-10-23 01:32 | disposition home or self-care (01) ==
LOC: ER 18:11
DX: E11.65 Type 2 diabetes mellitus with hyperglycemia (principal); E78.00 Pure hypercholesterolemia, unspecified; I10 Essential (primary) hypertension; J45.909 Unspecified asthma, uncomplicated; F16.10 Hallucinogen abuse, uncomplicated; F14.10 Cocaine abuse, uncomplicated; F12.10 Cannabis abuse, uncomplicated; E86.0 Dehydration; F17.200 Nicotine dependence, unspecified, uncomplicated; Z79.899 Other long term (current) drug therapy; Z79.4 Long term (current) use of insulin; Z88.6 Allergy status to analgesic agent; Z88.8 Allergy status to other drugs, medicaments and biological substances; Z91.19 Patient's noncompliance with other medical treatment and regimen
CPT/HCPCS: 36415; 71045; 80053; 80305; 81003; 82010; 82962; 84484; 85025; 93005; 96361; 96374; 96375; 99285; J1815; J1885; J7030; Z7610

== ENCOUNTER 2020-12-16 13:46 | Emergency (ER) | payer MEDICAID ==
[~2020-12-16] VITALS: Ht 167.6 cm; Wt 65.0 kg
[~2020-12-16 13:46] MED LIST changes: +ALBU6.7H9 INH; +IBUP-2029 MT; +INSLIS SUBCUT; +METH-653 MT
[2020-12-16] MEDS ORDERED: AZIT250T12 MT (16:10)
[2020-12-16] MEDS ORDERED: IBUP-2028 MT (16:11)
[2020-12-16] MEDS ORDERED: BENZ-16 MT (16:12)
[2020-12-16 16:37] VITALS: BP 144/78
== END 2020-12-16 16:48 | disposition home or self-care (01) ==
LOC: ER 15:19
DX: R07.89 Other chest pain (principal); R05 Cough; J44.9 Chronic obstructive pulmonary disease, unspecified; E11.9 Type 2 diabetes mellitus without complications; E78.00 Pure hypercholesterolemia, unspecified; I10 Essential (primary) hypertension; F14.10 Cocaine abuse, uncomplicated; F12.10 Cannabis abuse, uncomplicated; Z79.899 Other long term (current) drug therapy; J44.1 Chronic obstructive pulmonary disease with (acute) exacerbation; J20.9 Acute bronchitis, unspecified; J44.0 Chronic obstructive pulmonary disease with (acute) lower respiratory infection
CPT/HCPCS: 82962; 93005; 99283

== ENCOUNTER 2021-08-01 23:00 | Emergency (ER) | payer MEDICAID ==
[~2021-08-01] VITALS: Ht 167.6 cm; Wt 68.0 kg
[~2021-08-01 23:00] MED LIST changes: +AZIT250T12 MT; +BENZ-16 MT; +IBUP-2028 MT
[2021-08-01] MEDS ORDERED: KETOROLAC 60MG/2ML VIAL IM STA (23:14)
[2021-08-01] MEDS ORDERED: ASPIRIN 81MG TABLET PO ONE (23:15)
[2021-08-02 00:05] LABS: BASOPHILS % 0.8 % (0.0-2.0); EOSINOPHILS % 3.4 % (0.0-5.0); HEMATOCRIT. 30.8 % (36.0-48.0); HEMOGLOBIN. 9.8 g/dL (12.0-16.0); LYMPHOCYTES % 27.6 % (20.0-50.0); MEAN CORPUSCULAR HEMOGLOBIN 26.5 pg (28.0-32.0); MEAN CORPUSCULAR VOLUME 83.1 fL (81.0-99.0); MEAN PLATELET VOLUME 10.2 fl (7.4-10.4); MONOCYTES % 6.6 % (2.0-8.0); NEUTROPHILS % 61.6 % (40.0-76.0); PLATELET 248 x1000/uL (130-400); RED BLOOD CELL COUNT 3.71 mill/uL (4.2-5.4); RED CELL DISTRIBUTION WIDTH 14.1 % (11.6-14.6)
[2021-08-02 00:15] LABS: CHLORIDE 111 mEq/L (98-107)
[2021-08-02 00:21] LABS: ETHANOL BLOOD < 10 mg/dL
[2021-08-02] MEDS ORDERED: ASPIRIN 81MG TABLET PO NR (03:15)
[2021-08-02] MEDS ORDERED: KETOROLAC 60MG/2ML VIAL IM NR (03:15)
[2021-08-02 03:30] VITALS: BP 173/96
[2021-08-02] MEDS ORDERED: ACETAMINOPHEN 500MG TABLET PO ONE (03:30)
[2021-08-02 03:40] LABS: *AMPHETAMINES SCREEN URINE NEGATIVE (NEGATIVE)
[2021-08-02 03:41] LABS: *BARBITURATES SCREEN URINE NEGATIVE (NEGATIVE); *BENZODIAZEPINES SCREEN URINE NEGATIVE (NEGATIVE); *COCAINE SCREEN URINE NEGATIVE (NEGATIVE); CANNABINOID URINE SCREEN NEGATIVE (NEGATIVE); METHADONE URINE SCREEN NEGATIVE (NEGATIVE); OPIATES URINE SCREEN NEGATIVE (NEGATIVE)
[2021-08-02 03:42] LABS: PHENCYCLIDINE URINE SCREEN NEGATIVE (NEGATIVE)
== END 2021-08-02 04:42 | disposition home or self-care (01) ==
LOC: ER 23:00
DX: R07.89 Other chest pain (principal); F14.10 Cocaine abuse, uncomplicated; F12.10 Cannabis abuse, uncomplicated; J44.1 Chronic obstructive pulmonary disease with (acute) exacerbation; J45.909 Unspecified asthma, uncomplicated; E11.9 Type 2 diabetes mellitus without complications; E78.00 Pure hypercholesterolemia, unspecified; I10 Essential (primary) hypertension; Z88.6 Allergy status to analgesic agent; Z79.899 Other long term (current) drug therapy
CPT/HCPCS: 36415; 71045; 80053; 80305; 80320; 83880; 84484; 85025; 93005; 96372; 99285; J1885; G0480